=== PATIENT | female | born 1945 | race Caucasian/White ===

== ENCOUNTER 2020-04-29 21:44 | Emergency (ER) | payer MEDICARE, SELFPAY ==
[2020-04-29 21:47] VITALS: BP 175/87; PULSE 105; RESP 20; TEMP 36.9; O2SAT 99
--- NOTE | 2020-04-29 22:11 | ED.GENADULT ---
HPI - General Adult General Chief complaint: Wound/Laceration Stated complaint: bilat hand ibarra Time Seen by Provider: 04/29/20 22:01 Source: RN notes reviewed History of Present Illness HPI narrative: Patient presents emergency department from home for ibarra to the hand. Patient states that approximately 4:30 PM today she was at [facility] in [place] when she was getting coffee for her when they coffee came out the lid was on loosely and hot coffee spilled out the size onto her hands. She states that she is had pain in her hands since that time. She denies any blistering or open wounds. States she talked her daughter this evening recommend she came in for further evaluation. She states she has been placing them under water she states she is taken no other pain medication she denies any other ibarra outside of her hand. Related Data Home Medications Medication Instructions Recorded Confirmed amantadine HCl 100 mg tablet 100 mg PO BID 09/28/19 aspirin 81 mg tablet,delayed 81 mg PO DAILY 09/28/19 release atorvastatin 20 mg tablet 20 mg PO DAILY 09/28/19 cholecalciferol (vitamin D3) 25 1,000 unit PO DAILY 09/28/19 mcg (1,000 unit) capsule ferrous sulfate 325 mg (65 mg 325 mg PO DAILY 09/28/19 iron) tablet gabapentin 400 mg capsule 400 mg PO TID 09/28/19 glatiramer 20 mg/mL subcutaneous 20 mg SUB-Q 3XW ml 09/28/19 syringe insulin glargine 100 unit/mL (3 10 unit SUB-Q DAILY 09/28/19 mL) subcutaneous pen metformin 500 mg tablet 1,000 mg PO BID tablet 09/28/19 mirabegron 25 mg tablet,extended 25 mg PO DAILY 03/22/20 release 24 hr sertraline 50 mg tablet 50 mg PO DAILY 03/22/20 Allergies Allergy/AdvReac Type Severity Reaction Status Date / Time tomato Allergy Severe Mouth sores Verified 03/22/20 14:03 [place] And Derivatives Allergy Intermediate Mouth sores Verified 03/22/20 14:03 strawberry Allergy Mild Unknown Verified 03/22/20 14:03 Penicillins Allergy Unknown Unknown Verified 03/22/20 14:03 Sulfa (Sulfonamide Allergy Unknown Unknown Verified 03/22/20 14:03 Antibiotics) Review of Systems Review of Systems: Narrative: Gen.: Denies fevers or chills Musculoskeletal: See HPI Neuro: Denies numbness, tingling, weakness Skin: See HPI Endo: Reports DM [facility] Past Medical History Medical History (Updated 04/29/20 @ 22:15 by Vinicio Grant DO) Multiple sclerosis Type 2 diabetes mellitus without complications Surgical History Surgical History H/O cataract removal with insertion of prosthetic lens Social History Social History Smoking status: Former smoker Second hand tobacco smoke exposure: No Smoking end date: 11/04/83 Alcohol intake: current Substance use: never Gender identity (if verbalized by the patient): Female Exam Narrative: Exam Narrative: APPEARANCE: No acute distress, nontoxic, resting in bed Eyes: EOMI HEENT: Normocephalic, atraumatic, RESPIRATORY: No respiratory distress MUSCULOSKELETAl: Bilateral radial pulse 2+, full flexion extension of all 5 MCP and IP joints bilaterally NEURO: Awake and alert. Following commands, speech normal, no focal deficits SKIN:: Warm, dry. Mild spots of erythema over the bilateral palmar aspect of the hands and fingers no blistering or open wounds Course Course Emergency Course: Discussed with patient results of workup and diagnosis. Discussed need for follow-up with primary care, proper use of medication, and reasons to return to the emergency department. Patient understands and agrees to current treatment plan Vital Signs Vital signs: Vital Signs Temperature 98.5 F 04/29/20 21:47 Pulse Rate 105 H 04/29/20 21:47 Respiratory Rate 20 04/29/20 21:47 Blood Pressure 175/87 H 04/29/20 21:47 Pulse Oximetry 99 04/29/20 21:47 Temperature 98.5 F 04/29/20 21:47 Pulse Rate 105 H
== END 2020-04-29 22:29 | disposition home or self-care (01) ==
PROVIDERS: Emergency Provider Emergency Medicine; PCP Internal Medicine
DX: T23.152A Burn of first degree of left palm, initial encounter (principal); T23.132A Burn of first degree of multiple left fingers (nail), not including thumb, initial encounter; T23.151A Burn of first degree of right palm, initial encounter; T23.131A Burn of first degree of multiple right fingers (nail), not including thumb, initial encounter; T31.0 Burns involving less than 10% of body surface; G35 Multiple sclerosis; E11.9 Type 2 diabetes mellitus without complications; Z79.82 Long term (current) use of aspirin; Z79.4 Long term (current) use of insulin; Z79.84 Long term (current) use of oral hypoglycemic drugs; Z98.49 Cataract extraction status, unspecified eye; Z96.1 Presence of intraocular lens; Z87.891 Personal history of nicotine dependence
CPT/HCPCS: 99281

== ENCOUNTER 2020-11-21 13:30 | Outpatient (RCR) | payer MEDICARE, SELFPAY ==
[2020-11-21] MEDS: diphenhydrAMINE HCl CAP 25 MG CAPSULE PO (13:35)
[2020-11-21] MEDS: ACETAMINOPHEN 325 MG TABLET 650 MG PO (13:35)
[2020-11-21] MEDS: FAMOTIDINE 20 MG TABLET PO (13:35)
[2020-11-21 13:46] VITALS: BP 137/63; PULSE 105; RESP 18; TEMP 38.1; O2SAT 97
[2020-11-21 14:33] VITALS: BP 165/69; PULSE 99; RESP 16; TEMP 37.6; O2SAT 98
[2020-11-21 15:30] VITALS: BP 145/65; PULSE 100; RESP 18; O2SAT 100
--- NOTE | 2020-11-22 15:12 | PC.NURSE ---
Patient with no further symptoms from covid and patient with no reaction to the Bamlinivimab.
== END 2020-12-01 09:19 ==
LOC: AMCINF 13:30
PROVIDERS: PCP Internal Medicine; Visit Provider Internal Medicine
DX: Z23 Encounter for immunization (principal); U07.1 COVID-19; I10 Essential (primary) hypertension; E11.9 Type 2 diabetes mellitus without complications; G35 Multiple sclerosis; Z87.891 Personal history of nicotine dependence
CPT/HCPCS: A9270; J7050; M0239; Q0239

== ENCOUNTER 2021-08-01 07:32 | Outpatient (CLI) | payer MEDICARE, SELFPAY ==
--- NOTE | ~2021-08-01 | US_ITS ---
EXAMINATION: US abdomen complete EXAM DATE: 08/01/2021 08:22 INDICATION: thrombocytopenia, normochromic anemia. TECHNIQUE: Multiple grayscale and Doppler images of the complete abdomen were obtained (by a technolo gist who performed the scan) and subsequently reviewed. Correlation made to prior kidney ultrasound 04/30/2018, CT abdomen pelvis 01/06/2019 FINDINGS: The abdominal aorta is normal in caliber. Visualized portion IVC is patent. The pancreatic head a nd body are normal in appearance. The pancreatic tail is not visualized. The liver has normal echogenicity and contour. There are no focal liver lesions identified. There is no evidence of intrahepatic biliary duct dilation. Portal venous flow was seen in the hepatopedal , normal direction and has normal Doppler waveform. Common bile duct measures 5 mm, which is normal. The gallbladder wall is normal in thickness, with ex pected amount of distention. No sonographic evidence of pericholecystic fluid. There is a single si zable gallstone identified in the gallbladder which is mobile. Technologist performing exam reports patient did not demonstrate sonographic Murray's sign. Please note that this sign is less reliable i n patients who have received pain medication. Right kidney: There is normal contour and echogenicity. It measures 9.2 x 5.0 x 4.0 centimeters. T here are no focal renal lesions identified. There is no hydronephrosis. Left kidney: There is normal contour and echogenicity. It measures 10.9 x 4.4 x 4.0 centimeters. T here are no focal renal lesions identified. There is no hydronephrosis. Spleen measures 13.9 cm, borderline enlarged. Anechoic cystic region within the spleen measuring 1.3 cm, likely corresponding to one of the several hypodensities on prior CT, benign finding. IMPRESSION: 1. Borderline splenomegaly. 2. Cystic splenic lesion, benign. 3. Cholelithiasis. Reviewed, dictated and finalized at location A.
== END 2021-08-01 07:33 | disposition home or self-care (01) ==
PROVIDERS: PCP Internal Medicine; Visit Provider Internal Medicine
DX: D69.6 Thrombocytopenia, unspecified (principal); D64.9 Anemia, unspecified; D50.1 Sideropenic dysphagia; K80.20 Calculus of gallbladder without cholecystitis without obstruction
CPT/HCPCS: 76700

== ENCOUNTER → 2021-08-17 07:58 | Outpatient (CLI) | payer MEDICARE, SELFPAY ==
[2021-08-17 18:09] LABS: SARS-CoV-2 RNA PCR Negative
== END ==
PROVIDERS: PCP Internal Medicine; Visit Provider Internal Medicine
DX: R09.89 Other specified symptoms and signs involving the circulatory and respiratory systems (principal); Z20.822 Contact with and (suspected) exposure to COVID-19
CPT/HCPCS: C9803; U0003; U0005

== ENCOUNTER 2021-10-15 12:54 | Emergency (ER) | payer MEDICARE, SELFPAY ==
--- NOTE | ~2021-10-15 | CT_ITS ---
EXAMINATION: CT brain wo con, CT cervical spine wo con EXAM DATE: 10/15/2021 14:42 INDICATION: Trauma, dizziness. Posterior head injury. TECHNIQUE: Spiral CT of the head was performed without contrast. Axial, coronal and sagittal images were reviewed. Spiral CT of the cervical spine was performed without contrast. Axial images were rev iewed. Coronal and sagittal reformatted images were also reviewed. The dose-length product (DLP) fo r this examination was 756.67 (accession [id number]), 520.63 (accession [id number]) mGy-cm. The exposure was tailored according to patient size, and iterative reconstruction (ASIR) was used as additional dose reduction technique. Compared to head CT 05/03/2018. FINDINGS: HEAD CT: There is no acute intraparenchymal hemorrhage. No evidence of intraparenchymal brain mass l esion. No evidence of acute infarction. There is mild periventricular and subcortical hypodensity, n onspecific but probably related to small vessel ischemic disease. There is moderate prominence of t he sulci and ventricles related to cerebral atrophy. There is no mass effect or midline shift. The re is no obstructive hydrocephalus suspected. There are no extra-axial collections. There are no ac [place] calvar[place] fractures. The orbits are unremarkable. Soft tissue is unremarkable. The visualized sinuses and mastoid air cells are well aerated. CERVICAL CT: There is no evidence of acute cervical fracture. The odontoid process is intact. Pre-d ens space is normal. Prevertebral soft tissue is normal. There are no soft tissue abnormalities arthur ntified. There is no disc space widening or traumatic vertebral body subluxation suspected. Moderat e disc disease at C6-7. There is severe left mid cervical facet arthropathy. A detailed level by ann marie booker evaluation of spondylosis can be added as addendum if requested. IMPRESSION: 1. No acute intracranial findings or cervical fracture. 2. Age-related intracranial findings. 3. Cervical spondylosis. Reviewed, dictated and finalized at location A. H DRIVER IMPRESSION: 1. No acute intracranial findings or cervical fracture. 2. Age-related intracranial findings. 3. Cervical spondylosis.
[2021-10-15 13:00] VITALS: BP 138/63; PULSE 81; RESP 14; TEMP 36.8; O2SAT 99
--- NOTE | 2021-10-15 13:08 | ECG_ITS ---
Measurements Intervals [place] Rate: 79 P: -33 [place]: 126 QRS: -20 QRSD: 84 T: -29 QT: 380 QTc: 438 Interpretive Statements SINUS RHYTHM INFERIOR INFARCT, AGE INDETERMINATE BORDERLINE ST ABNORMALITY- ANTERIOR LEADS BASELINE ARTIFACT- II, V3 ABNORMAL ECG Electronically Signed On 10-15-2021 16:36:32 TICKET MACHINE OPERATOR by Dariel Wren D.O.
[2021-10-15 13:16] LABS: Glucose Point of Care 71 mg/dl (65-105)
[2021-10-15 14:12] LABS: Glucose Point of Care 232 mg/dl (65-105)
[2021-10-15 14:58] LABS: Basophils Percent Auto 0.4 % (0.2-1.2); Eosinophils Percent Auto 0.8 % (0-4.4); Hematocrit 36.1 % (37.0-47.0); Hemoglobin 12.6 g/dL (12.0-15.0); Immature Granulocyte Absolute 0.01 K/mm3 (0.00-0.031); Immature Granulocyte Percent A 0.2 % (0-0.5); Lymphocytes Absolute Auto 0.57 K/mm3 (0.9-3.2); Lymphocytes Percent Auto 11.6 % (18.3-44.2); Mean Corpuscular HGB Conc 34.9 g/dl (32-36); Mean Corpuscular Hemoglobin 32.1 pg (26-34); Mean Corpuscular Volume 92.1 fl (80-100); Mean Platelet Volume 9.8 fl (7.4-10.4); Monocytes Absolute Auto 0.5 K/mm3 (0.1-0.6); Monocytes Percent Auto 9.9 % (2.6-8.5); Neutrophils Absolute Auto 3.8 K/mm3 (1.3-6.7); Neutrophils Percent Auto 77.1 % (45.5-73.1); Platelet Count Result 78 k/mm3 (150-375); Red Blood Count 3.92 M/mm3 (4.2-5.4); Red Cell Distribution Width 14.2 % (11.5-14.5); White Blood Count 4.9 K/mm3 (4.5-10.0)
[2021-10-15 15:30] LABS: Alanine Aminotransferase 23 U/L (4-35); Albumin Level 3.8 g/dL (3.5-5.1); Alkaline Phosphatase 74 U/L (38-126); Anion Gap 12 mmol/L (8-16); Aspartate Amino Transferase 32 U/L (14-36); Bilirubin,Total 1.3 mg/dL (0.2-1.3); Blood Urea Nitrogen 14 mg/dL (7-17); Calcium 8.8 mg/dL (8.4-10.2); Carbon Dioxide 21 mmol/L (22-30); Chloride 97 mmol/L (98-107); Estimated CRCL calculation 58 ml/min; Estimated Glomerular Filt Rate > 60; Glucose 257 mg/dL (65-110); Potassium 3.3 mmol/L (3.4-5.0); Sodium 130 mmol/L (137-145)
--- NOTE | 2021-10-15 15:37 | ED.FALL ---
HPI - Fall General Chief Complaint: Fall Stated Complaint: fall Time Seen by Provider: 10/15/21 13:17 History of Present Illness HPI Narrative: Patient is a 76-year-old female who presents ER after a fall. Patient was getting up from the toilet when she fell into the side of her shower and hit the ground. She did strike her head. She has a 2 cm laceration on the right side. No loss of consciousness. She is not on any blood thinners. Patient had some weakness likely from the fact that her blood sugar was 50 and that she has MS. She reports she has been feeling weak for the last couple days and has not been eating well. She did not take her medications this morning. Related Data Home Medications Medication Instructions Recorded Confirmed atorvastatin 20 mg tablet 20 mg PO DAILY 09/28/19 09/06/21 cholecalciferol (vitamin D3) 25 1,000 unit PO DAILY 09/28/19 09/06/21 mcg (1,000 unit) capsule ferrous sulfate 325 mg (65 mg 325 mg PO DAILY 09/28/19 09/06/21 iron) tablet metformin 500 mg tablet 1,000 mg PO BID tablet 09/28/19 09/06/21 mirabegron 25 mg tablet,extended 25 mg PO DAILY 03/22/20 09/06/21 release 24 hr elderberry fruit 200 mg capsule mg PO 09/06/21 09/06/21 exenatide microspheres 2 mg/0.85 2 mg SUBCUT WEEKLY 09/06/21 09/06/21 mL subcutaneous auto-injector insulin glargine 100 unit/mL (3 20 unit SUB-Q DAILY ml 09/06/21 09/06/21 mL) subcutaneous pen melatonin 3 mg capsule 3 mg PO QHS 09/06/21 09/06/21 Allergies Allergy/AdvReac Type Severity Reaction Status Date / Time tomato Allergy Severe Mouth sores Verified 10/15/21 13:07 [place] And Derivatives Allergy Intermediate Mouth sores Verified 10/15/21 13:07 strawberry Allergy Mild Unknown Verified 10/15/21 13:07 Penicillins Allergy Unknown Unknown Verified 10/15/21 13:07 Sulfa (Sulfonamide Allergy Unknown Unknown Verified 10/15/21 13:07 Antibiotics) Review of Systems Review of Systems: All systems reviewed & are unremarkable except as noted in HPI and below Constitutional: Constitutional: Denies chills, Denies fever(s) and Denies weakness ENT: Denies nasal congestion and Denies sore throat Cardiovascular: Cardiovascular: Denies chest pain, Denies rapid heart rate and Denies radiating jaw, neck or arm pain Respiratory: Respiratory: Denies cough, Denies dyspnea and Denies wheezing Gastrointestinal: Gastrointestinal: Denies abdominal pain, Denies nausea and Denies vomiting Neurologic: Denies syncope, Denies headache(s), Denies focal weakness and Denies numbness PMFSH Past Medical History Medical History Multiple sclerosis Type 2 diabetes mellitus without complications Surgical History Surgical History H/O cataract removal with insertion of prosthetic lens Family History Family History Sibling Hypertension Family history of malignant neoplasm of cervix Father Patient's father is Social History Social History Smoking packs per day: 1 Smoking cigarettes per day: 20.0 Years smoked: 40 Smoking pack-years: 40.00 Smoking status: Former smoker Tobacco type: cigarettes Second hand tobacco smoke exposure: Yes () Smoking end date: 11/04/92 Alcohol intake: current Substance use: never Gender identity (if verbalized by the patient): Female Spiritual care concerns: No Exam Narrative: GENERAL: Well-appearing, well-nourished, and in no acute distress. HEAD: Normocephalic, low approximately 2 cm laceration right occipital parietal region. Bleeding controlled.. EYES: PERRL and EOMI. ENT: Mucous membranes moist. CHEST: Clear to auscultation. No respiratory distress. HEART: Regular rate and rhythm. Normal peripheral pulses. ABDOMEN: Soft, nontender, nondistended. EXTREM
[2021-10-15 16:01] VITALS: BP 153/61; PULSE 78; RESP 16; O2SAT 100
== END 2021-10-15 16:03 | disposition home or self-care (01) ==
PROVIDERS: Emergency Provider Emergency Medicine; PCP Internal Medicine
DX: S01.01XA Laceration without foreign body of scalp, initial encounter (principal); W18.11XA Fall from or off toilet without subsequent striking against object, initial encounter; E11.649 Type 2 diabetes mellitus with hypoglycemia without coma; G35 Multiple sclerosis; Z79.4 Long term (current) use of insulin; Z79.84 Long term (current) use of oral hypoglycemic drugs; Z98.49 Cataract extraction status, unspecified eye; Z96.1 Presence of intraocular lens; Z87.891 Personal history of nicotine dependence; M47.812 Spondylosis without myelopathy or radiculopathy, cervical region
CPT/HCPCS: 12001; 36415; 70450; 72125; 80053; 82948; 85025; 93005; 99284; L0140

== ENCOUNTER 2022-01-24 11:42 | Inpatient (IN) | payer MEDICARE, SELFPAY ==
[2022-01-24] VITALS (60 sets, daily range): BP systolic 76–144; BP diastolic 41–87; PULSE 82–103; RESP 11–38; TEMP 36.1–37.3; O2SAT 96–100; BMI 32.3
--- NOTE | ~2022-01-24 | XR_ITS ---
EXAMINATION: XR chest 1V portable EXAM DATE: 01/24/2022 17:13 INDICATION: Hypotension, 3 Syncopal Episodes Today, Hx Ms, Hx Diabetes. TECHNIQUE: Portable AP frontal chest x-ray was obtained. Comparison is made to prior examination from 07/01/2018. FINDINGS: The lungs are clear. There are no pleural effusions. Cardiac silhouette is prominent but magnified on this AP technique. There is no pneumothorax suspected. The bones and soft tissues are unremarkable. IMPRESSION: No acute cardiopulmonary findings. Reviewed, dictated and finalized at location G.
--- NOTE | ~2022-01-24 | US_ITS ---
EXAMINATION: US abdomen limited DATE: 01/26/2022 11:25 INDICATION: Cirrhosis TECHNIQUE: Multiple grayscale and Doppler ultrasound images of the abdomen were obtained. COMPARISON: 06/23/2021 FINDINGS: The head, body, and tail of the pancreas are normal. The liver demonstrates coarsened echot exture and increased echogenicity. There is nodularity of the liver surface. The portal vein is enlar ged. Normal hepatopetal flow in the main portal vein. A stone is present in the nondistended gallblad edvin. There is mild wall thickening of the gallbladder. The normal common bile duct measures 4 mm. The re was no sonographic Murray sign. IMPRESSION: 1. Cirrhosis with hypertension. 2. Cholelithiasis without evidence of cholecystitis. Wall thickening of the gallbladder likely relate s to chronic liver disease Reviewed, dictated and finalized at location B. IMPRESSION: 1. Cirrhosis with hypertension. 2. Cholelithiasis without evidence of cholecystitis. Wall thickening of the gal lbladder likely relates to chronic liver disease
--- NOTE | ~2022-01-24 | CT_ITS ---
EXAMINATION: CTA chest PE protocol EXAM DATE: 01/24/2022 21:06 INDICATION: Hypertension, syncope. TECHNIQUE: Spiral CTA of the chest (pulmonary arteries) was performed with 100 cc Omnipaque 350 intr avenous contrast injection. Images were acquired during the pulmonary arterial phase. Coronal maxi mum intensity projection 3D-reconstructions were created by the technologist on dedicated workstation . Axial, coronal and sagittal reformatted images were reviewed. The dose-length product (DLP) for t his examination was 505.37 mGy-cm. The exposure was tailored according to patient size (auto mA exp osure control), and iterative reconstruction (ASIR) was used as additional dose reduction technique. There is no prior study for comparison. FINDINGS: Pulmonary arteries are well opacified and without intraluminal filling defects. No thora cic aortic dissection. The lungs are clear. There are no pleural or pericardial effusions. Trach eobronchial tree is patent. There is no mediastinal, hilar or axillary lymphadenopathy. There is no pneumothorax. Heart normal in size. There is mild to moderate coronary arterial calcification, arterial sclerosis. There is a 2 cm gallstone. There is only mild gallbladder distention, but indistinct wall, mild adjac ent fat stranding which could be reactive from chronic liver disease given the liver surface nodulari ty consistent with cirrhosis. Dilated portal vein up to 2.3 cm consistent with portal hypertension wi th mild periportal edema. The imaged portion of the spleen measures 13.8 cm, upper limits of normal. 4 splenic nonspecific hypodensity, likely benign. There is thoracic spondylosis without osteoblastic or osteolytic lesions identified. IMPRESSION: 1. No pulmonary emboli or acute cardiopulmonary findings. 2. Cirrhosis, portal hypertension. Periportal and pericholecystic fat stranding could be reactive fr om chronic liver disease. Cholelithiasis. 3. Nonspecific splenic lesions. Majority of splenic lesions are benign. Reviewed, dictated and finalized at location G. IMPRESSION: 1. No pulmonary emboli or acute cardiopulmonary findings. 2. Cirrhosis, portal hypertension. Periportal and pericholecystic fat strandin g could be reactive from chronic liver disease. Cholelithiasis. 3. Nonspecific splenic lesions. Majority of splenic lesions are benign.
--- NOTE | 2022-01-24 11:48 | ECG_ITS ---
Measurements Intervals [place] Rate: 95 P: -24 [place]: 134 QRS: -2 QRSD: 78 T: 3 QT: 354 QTc: 446 Interpretive Statements SINUS RHYTHM PROBABLE INFERIOR MYOCARDIAL INFARCTION , PROBABLY OLD [35 ms Q WAVE IN II/aVF] NONSPECIFIC ST ABNORMALITY POOR R-WAVE PROGRESSION ABNORMAL ECG Electronically Signed On 01-24-2022 14:21:01 CDT by Kevin Worthy M.D.
[2022-01-24 12:36] LABS: Basophils Absolute Auto 0.1 K/mm3 (0.0-0.1); Basophils Percent Auto 0.7 % (0.2-1.2); Eosinophils Absolute Auto 0.1 K/mm3 (0-0.3); Eosinophils Percent Auto 1.2 % (0-4.4); Hematocrit 44.5 % (37.0-47.0); Hemoglobin 14.7 g/dL (12.0-15.0); Immature Granulocyte Absolute 0.05 K/mm3 (0.00-0.031); Immature Granulocyte Percent A 0.5 % (0-0.5); Lymphocytes Absolute Auto 1.61 K/mm3 (0.9-3.2); Lymphocytes Percent Auto 17.5 % (18.3-44.2); Mean Corpuscular Volume 96.7 fl (80-100); Mean Platelet Volume 9.6 fl (7.4-10.4); Monocytes Absolute Auto 0.8 K/mm3 (0.1-0.6); Monocytes Percent Auto 8.9 % (2.6-8.5); Neutrophils Absolute Auto 6.5 K/mm3 (1.3-6.7); Neutrophils Percent Auto 71.2 % (45.5-73.1); Platelet Count Result 186 k/mm3 (150-375); Red Cell Distribution Width 13.3 % (11.5-14.5); White Blood Count 9.2 K/mm3 (4.5-10.0)
[2022-01-24 12:42] LABS: Alanine Aminotransferase 20 U/L (4-35); Albumin Level 3.9 g/dL (3.5-5.1); Alkaline Phosphatase 62 U/L (38-126); Anion Gap 13 mmol/L (8-16); Aspartate Amino Transferase 31 U/L (14-36); Bilirubin,Total 0.7 mg/dL (0.2-1.3); Blood Urea Nitrogen 12 mg/dL (7-17); Calcium 9.2 mg/dL (8.4-10.2); Carbon Dioxide 21 mmol/L (22-30); Chloride 106 mmol/L (98-107); Estimated CRCL calculation 49 ml/min; Estimated Glomerular Filt Rate > 60; Glucose 98 mg/dL (65-110); Potassium 2.9 mmol/L (3.4-5.0); Sodium 140 mmol/L (137-145)
--- NOTE | 2022-01-24 12:42 | PC.NURSE ---
PT COVERED IN TOOL, BED PATH GIVEN, NEW LINEN AND GOWN CHANGED
--- NOTE | 2022-01-24 13:28 | ED.GENADULT ---
HPI - General Adult General Chief complaint: Syncope Stated complaint: weakness, syncopal episode Time Seen by Provider: 01/24/22 13:13 Source: patient Mode of arrival: EMS Limitations: no limitations History of Present Illness HPI narrative: Patient woke up this morning felt like she needed to go to the bathroom, then had a large watery bowel movement, then tried to stand up and felt woozy and fell down to the floor, did not black out. Patient denied any head injury or other injuries. Patient reports having sporadic episodes of diarrhea and usually take Imodium for it. Currently patient is asymptomatic feeling okay as long as laying down in bed. She denies any fever, chills, nausea, vomiting, abdominal pain, chest pain, shortness of breath, headache. Patient could not pick her up of the floor at this why call 911 Related Data Home Medications Medication Instructions Recorded Confirmed atorvastatin 20 mg tablet 20 mg PO DAILY 09/28/19 10/23/21 cholecalciferol (vitamin D3) 25 1,000 unit PO DAILY 09/28/19 10/23/21 mcg (1,000 unit) capsule ferrous sulfate 325 mg (65 mg 325 mg PO DAILY 09/28/19 10/23/21 iron) tablet metformin 500 mg tablet 1,000 mg PO BID tablet 09/28/19 10/23/21 mirabegron 25 mg tablet,extended 25 mg PO DAILY 03/22/20 10/23/21 release 24 hr elderberry fruit 200 mg capsule mg PO 09/06/21 10/23/21 exenatide microspheres 2 mg/0.85 2 mg SUBCUT WEEKLY 09/06/21 10/23/21 mL subcutaneous auto-injector insulin glargine 100 unit/mL (3 20 unit SUB-Q DAILY ml 09/06/21 10/23/21 mL) subcutaneous pen melatonin 3 mg capsule 3 mg PO QHS 09/06/21 10/23/21 Allergies Allergy/AdvReac Type Severity Reaction Status Date / Time tomato Allergy Severe Mouth sores Verified 10/20/21 14:03 [place] And Derivatives Allergy Intermediate Mouth sores Verified 10/20/21 14:03 strawberry Allergy Mild Unknown Verified 10/20/21 14:03 Penicillins Allergy Unknown Unknown Verified 10/20/21 14:03 Sulfa (Sulfonamide Allergy Unknown Unknown Verified 10/20/21 14:03 Antibiotics) Review of Systems Review of Systems: CONSTITUTIONAL: Denies fever, chills, or sweats. EYES: Denies visual changes, redness, or discharge. ENT: Denies rhinorrhea, congestion, sore throat, or otalgia. CARDIOVASCULAR: Denies chest pain, palpitations, or edema. RESPIRATORY: Denies cough or dyspnea. GASTROINTESTINAL: Denies abdominal pain, nausea, vomiting, or diarrhea. GENITOURINARY: Denies dysuria or hematuria. SKIN: Denies rash or itching. MUSCULOSKELETAL: Denies back pain, joint pain, or myalgia. NEUROLOGIC: Denies headache, numbness, or weakness. PSYCHIATRIC: Denies anxiety or depression. [facility] Past Medical History Medical History Multiple sclerosis Type 2 diabetes mellitus without complications Surgical History Surgical History H/O cataract removal with insertion of prosthetic lens Family History Family History Sibling Hypertension Family history of malignant neoplasm of cervix Father Patient's father is Social History Social History Smoking packs per day: 1 Smoking cigarettes per day: 20.0 Years smoked: 40 Smoking pack-years: 40.00 Smoking status: Former smoker Tobacco type: cigarettes Second hand tobacco smoke exposure: Yes () Smoking end date: 11/04/92 Alcohol intake: current Substance use: never Gender identity (if verbalized by the patient): Female Spiritual care concerns: No Exam Narrative: General appearance: Well-developed, well-nourished Skin: Normal color Head: Normocephalic, nontraumatic Eyes: Clear conjunctiva ENT: Oropharynx normal, ears normal, nose normal Neck: Supple, nontender Chest and respiratory: Airway patent, no respiratory distress, no accessory mus
[2022-01-24] MEDS: SODIUM CHLORIDE 0.9% IV 1,000 ML 999 ML IV CONT ×3 (13:40→17:29)
--- NOTE | 2022-01-24 16:25 | PC.NURSE ---
pt noted to be hypotensive after ambulating to bathroom 88/54, pt complained of dizziness when sitting up . 2nd liter of NS started, pt laid flat
--- NOTE | 2022-01-24 16:55 | ECG_ITS ---
Measurements Intervals [place] Rate: 95 P: -24 [place]: 134 QRS: -2 QRSD: 78 T: 3 QT: 354 QTc: 446 Interpretive Statements SINUS RHYTHM PROBABLE INFERIOR MYOCARDIAL INFARCTION , PROBABLY OLD [35 ms Q WAVE IN II/aVF] NONSPECIFIC ST ABNORMALITY ABNORMAL ECG COMPARED TO ECG 10/15/2021 13:12:58 NO SIGNIFICANT CHANGES Electronically Signed On 01-25-2022 15:44:20 CDT by Kevin Worthy M.D.
[2022-01-24 17:58] LABS: INR 1.4; Prothrombin Time 16.8 Seconds (11.1-14.7)
[2022-01-24 17:59] LABS: CRP 0.7 mg/dL (<1.0); Partial Thromboplastin Time 28.6 SECONDS (22.3-36.8)
[2022-01-24 18:00] LABS: Lactic Acid Reflex 4.8 mmol/L (0.7-2.1)
[2022-01-24 18:10] LABS: Troponin I 0.143 ng/mL (0.000-0.034)
[2022-01-24 18:26] LABS: SARS-CoV-2 RNA PCR Negative
[2022-01-24 20:42] LABS: Reflex Lactic Acid Yes or No Add Lactic
--- NOTE | 2022-01-24 20:49 | PM.IMHP ---
H&P: HPI History of Present Illness Date/Time: 01/24/22 20:49 Chief Complaint: 76 years old female with past medical history multiple sclerosis hypertension chronic diarrhea presented to the hospital with near-syncope episode patient had urge to go to the bathroom to have a bowel movement big large bowel movement liquid then she fell to the ground patient did not hit her head not sustain any injury patient stated that she have history of diarrhea in the past and she takes Imodium at the ER patient was found to have dehydration hypokalemia elevated lactic acid admitted to the hospital for further evaluation and treat Review of Systems Review of Systems: All systems reviewed & are unremarkable except as noted in HPI and below PMFSH Past Medical History Medical History Multiple sclerosis Type 2 diabetes mellitus without complications Surgical History Surgical History H/O cataract removal with insertion of prosthetic lens Family History Family History Sibling Hypertension Family history of malignant neoplasm of cervix Father Patient's father is Social History Social History Smoking packs per day: 1 Smoking cigarettes per day: 20.0 Years smoked: 40 Smoking pack-years: 40.00 Smoking status: Former smoker Tobacco type: cigarettes Second hand tobacco smoke exposure: Yes () Smoking end date: 11/04/92 Alcohol intake: current Substance use: never Gender identity (if verbalized by the patient): Female Spiritual care concerns: No Meds Home Medications and Allergies Home Medications Medication Instructions Recorded Confirmed Type atorvastatin 20 mg tablet 20 mg PO DAILY 09/28/19 10/23/21 History cholecalciferol (vitamin D3) 25 1,000 unit PO DAILY 09/28/19 10/23/21 History mcg (1,000 unit) capsule ferrous sulfate 325 mg (65 mg 325 mg PO DAILY 09/28/19 10/23/21 History iron) tablet metformin 500 mg tablet 1,000 mg PO BID tablet 09/28/19 10/23/21 History mirabegron 25 mg tablet,extended 25 mg PO DAILY 03/22/20 10/23/21 History release 24 hr amantadine HCl 100 mg tablet 100 mg PO BID #60 tablet 08/21/21 10/23/21 Rx gabapentin 100 mg capsule 100 mg PO DAILY #30 cap 08/30/21 10/23/21 Rx gabapentin 600 mg tablet 600 mg PO DAILY #30 tablet 08/30/21 10/23/21 Rx elderberry fruit 200 mg capsule mg PO 09/06/21 10/23/21 History exenatide microspheres 2 mg/0.85 2 mg SUBCUT WEEKLY 09/06/21 10/23/21 History mL subcutaneous auto-injector insulin glargine 100 unit/mL (3 20 unit SUB-Q DAILY ml 09/06/21 10/23/21 History mL) subcutaneous pen lisinopril 20 mg tablet 20 mg PO DAILY #90 tablet 09/06/21 10/23/21 Rx melatonin 3 mg capsule 3 mg PO QHS 09/06/21 10/23/21 History fluticasone propionate 50 2 spray INTRANASAL DAILY PRN #46 ml 11/07/21 Rx mcg/actuation nasal spray,suspension glatiramer 20 mg/mL subcutaneous 20 mg SUB-Q 3XW #30 ml 11/08/21 Rx syringe aspirin 81 mg tablet,delayed 81 mg PO DAILY #100 tablet 11/15/21 Rx release citalopram 40 mg tablet 40 mg PO DAILY #30 tablet 11/15/21 Rx Allergies Allergy/AdvReac Type Severity Reaction Status Date / Time tomato Allergy Severe Mouth sores Verified 10/20/21 14:03 [place] And Derivatives Allergy Intermediate Mouth sores Verified 10/20/21 14:03 strawberry Allergy Mild Unknown Verified 10/20/21 14:03 Penicillins Allergy Unknown Unknown Verified 10/20/21 14:03 Sulfa (Sulfonamide Allergy Unknown Unknown Verified 10/20/21 14:03 Antibiotics) Vital Signs Vital Signs - 24 hr 01/24/22 11:45 01/24/22 11:48 01/24/22 12:03 Temperature 97 F L Pulse Rate Respiratory Rate 15 26 H Blood Pressure 88/44 L Pulse Oximetry 100 01/24/22 12:15 01/24/22 12:30
--- NOTE | 2022-01-24 21:24 | ADMGEN ---
This patient, Duong Haddad, was admitted to IMU Room 200-01 at 2022. Patient/family oriented to hospital policies and general routines including ID bracelet, bed and alarms, visiting hours, pain management, procedures, bathroom and other care routines, personal items, smoking policy, room service/diet, and visiting hours. Information on how to activate the Rapid Response Team has been discussed. Patient/Family are encouraged to report perceived risks to care and to ask questions if they do not understand what they are told or what they should do.
[2022-01-24 22:30] LABS: Lactic Acid 2.4 mmol/L (0.7-2.1)
[2022-01-24] MEDS: POTASSIUM CHLORIDE INJ 40 MEQ in SODIUM CHLORIDE 0.9% IV 500 ML 130 MEQ IVPB (22:47)
[2022-01-24] MEDS: SODIUM CHLORIDE 0.9% IV 1,000 ML 100 ML IV CONT (22:48)
[2022-01-24 23:37] LABS: Add Urine Microscopic? YES; Appearance Urine Cloudy (Clear); Bacteria Urine Trace /hpf; Bilirubin Urine Negative (Negative); Blood Urine Negative (Negative); Color Urine Yellow (Yellow); Glucose Urine UA Negative (Negative); Ketones Urine Negative (Negative); Leukocyte Esterase Ur Trace LEU/UL (Negative); Mucus Urine Rare /lpf; Nitrate Urine Negative (Negative); Protein Urine 1+ mg/dL (Negative); RBC Urine 21-50 /hpf (0-2); Squamous Epithelial Cell Urine Many /hpf (Few); Urobilinogen Urine Negative mg/dL (<2.0)
[2022-01-24] MEDS: MELATONIN 3 MG TABLET PO (23:44)
[2022-01-24 23:47] LABS: Specific Grav Ur 1.055 (1.001-1.035)
[2022-01-25] VITALS (19 sets, daily range): BP systolic 122–193; BP diastolic 54–88; PULSE 55–106; RESP 16–22; TEMP 36.8–37.6; O2SAT 95–100
[2022-01-25 05:54] LABS: Alanine Aminotransferase 16 U/L (4-35); Albumin Level 2.9 g/dL (3.5-5.1); Alkaline Phosphatase 46 U/L (38-126); Anion Gap 6 mmol/L (8-16); Aspartate Amino Transferase 30 U/L (14-36); Blood Urea Nitrogen 15 mg/dL (7-17); Calcium 7.9 mg/dL (8.4-10.2); Carbon Dioxide 21 mmol/L (22-30); Chloride 111 mmol/L (98-107); Estimated CRCL calculation 49 ml/min; Estimated Glomerular Filt Rate > 60; Glucose 76 mg/dL (65-110); Potassium 3.5 mmol/L (3.4-5.0); Sodium 138 mmol/L (137-145)
[2022-01-25 06:26] LABS: Free T4 Free Thyroxine Reflex 1.39 ng/dL (0.78-2.19)
[2022-01-25 07:43] LABS: Basophils Percent Auto 0.7 % (0.2-1.2); Eosinophils Absolute Auto 0.1 K/mm3 (0-0.3); Eosinophils Percent Auto 1.1 % (0-4.4); Immature Granulocyte Absolute 0.01 K/mm3 (0.00-0.031); Immature Granulocyte Percent A 0.2 % (0-0.5); Lymphocytes Absolute Auto 1.01 K/mm3 (0.9-3.2); Mean Corpuscular HGB Conc 34.4 g/dl (32-36); Mean Corpuscular Hemoglobin 32.4 pg (26-34); Mean Corpuscular Volume 94.1 fl (80-100); Mean Platelet Volume 9.5 fl (7.4-10.4); Monocytes Absolute Auto 0.5 K/mm3 (0.1-0.6); Monocytes Percent Auto 11.1 % (2.6-8.5); Neutrophils Percent Auto 64.9 % (45.5-73.1); Platelet Count Result 85 k/mm3 (150-375); Red Cell Distribution Width 13.4 % (11.5-14.5); White Blood Count 4.6 K/mm3 (4.5-10.0)
[2022-01-25 07:51] LABS: Potassium 3.4 mmol/L (3.4-5.0)
[2022-01-25 07:55] LABS: Lactic Acid Reflex 1.1 mmol/L (0.7-2.1)
[2022-01-25 08:03] LABS: Total Triiodothyronine (T3) 1.59 NG/ML (0.97-1.69)
[2022-01-25 08:46] LABS: Troponin I 0.051 ng/mL (0.000-0.034)
[2022-01-25] MEDS: GABAPENTIN 300 MG CAPSULE 600 MG PO (11:29)
[2022-01-25] MEDS: CITALOPRAM HYDROBROMIDE 20 MG TABLET 40 MG PO (11:29)
[2022-01-25] MEDS: CHOLECALCIFEROL 1,000 UNITS TABLET 1000 UNITS PO (11:30)
[2022-01-25] MEDS: FERROUS SULFATE 324 MG TABLET PO (11:30)
[2022-01-25] MEDS: AMANTADINE HCL 100 MG CAPSULE PO ×2 (11:30→17:37)
[2022-01-25] MEDS: INSULIN GLARGINE (*BKC) 100 UNITS/ML 16 UNITS SUB-Q (11:31)
[2022-01-25] MEDS: ATORVASTATIN 20 MG TABLET PO (11:31)
[2022-01-25] MEDS: lisinopriL 20 MG TABLET PO (11:32)
[2022-01-25] MEDS: ENOXAPARIN 40 MG/0.4 ML SYRINGE SUB-Q (11:32)
[2022-01-25] MEDS: GABAPENTIN 100 MG CAPSULE PO (11:34)
[2022-01-25 12:43] LABS: Glucose Point of Care 125 mg/dl (65-105)
--- NOTE | 2022-01-25 15:13 | PCCCNOTE ---
On 01/25/22, the student, [Mary Khan], provided care and completed [facility] documentation on this patient. I have reviewed the student's documentation and agree with the findings.
[2022-01-25 16:04] LABS: Glucose Point of Care 103 mg/dl (65-105)
--- NOTE | 2022-01-25 16:58 | PM.IMPN ---
Progress Note: A&P Assessment and Plan (1) Bacteremia: Code(s): R78.81 - Bacteremia Status: Acute Assessment and Plan: Blood cultures were drawn due to elevated lactic acid and hypotension. One of 2 bottles has returned Gram-positive cocci in clusters. UA noted but probably more contaminated specimen. Chest x-ray was clear. Could be contaminant. Will add vancomycin. Follow up on final results (2) Orthostatic hypotension: Code(s): I95.1 - Orthostatic hypotension Status: Acute Assessment and Plan: On EMS arrival, blood pressure was 72/54 and 64/42. Patient on lisinopril at home. TSH 6.18 but not felt to be etiology. CTA negative for PE or other acute findings. Possibly related to sepsis with septic shock given positive blood cultures. She may be overtreated given her recent weight loss. She could be dehydrated. Could also be orthostatic hypotension related to autonomic insufficiency. With IV fluids. Her blood pressure has now become hypertensive. Lisinopril has already been added back. Will continue to monitor for now. Continue to monitor. Start PT/OT (3) Elevated lactic acid level: Code(s): R79.89 - Other specified abnormal findings of blood chemistry Status: Acute Assessment and Plan: Most likely related to hypoperfusion secondary to orthostatic hypotension. Infection appears unlikely although now she has positive blood cultures. Lactic acid level has normalized. Follow up on blood culture results. Urine culture pending. (4) Elevated troponin: Code(s): R77.8 - Other specified abnormalities of plasma proteins Status: Acute Assessment and Plan: Troponin elevated 0.14. EKG shows normal sinus rhythm with age-indeterminate inferior infarct and nonspecific ST changes and poor R-wave progression but overall x-ray similar to EKG from October. Repeat EKG showing no significant change. Echo shows EF of 65-70% and grade 1 diastolic dysfunction. No wall motion abnormalities noted. Feel elevated troponin related to hypotensive event given how lower blood pressure was. Continue to monitor on telemetry. (5) Diarrhea: Qualifiers: Diarrhea type: unspecified type Qualified Code(s): R19.7 - Diarrhea, unspecified Code(s): R19.7 - Diarrhea, unspecified Status: Acute Assessment and Plan: Patient states she has chronic diarrhea that comes and goes. No recent antibiotics to suggest C diff. Follow-up with PCP as outpatient. (6) Chronic ITP (idiopathic thrombocytopenia): Code(s): D69.3 - Immune thrombocytopenic purpura Status: Acute Assessment and Plan: Platelet count has been low in the past but was normal on admission. Platelet count today is 85 K. will continue to monitor closely. Will stop Lovenox. (7) Type 2 diabetes mellitus without complications: Code(s): E11.9 - Type 2 diabetes mellitus without complications Status: Acute Assessment and Plan: Patient on Lantus and metformin at home. Lantus started at lower dose. Glucose well controlled. Check A1c. Continue AccuCheks covering with sliding scale. Hypoglycemia protocol available as needed. Continue current medications. (8) Essential (primary) hypertension: Code(s): I10 - Essential (primary) hypertension Status: Acute Assessment and Plan: As above. (9) Multiple sclerosis: Code(s): G35 - Multiple sclerosis Status: Acute Assessment and Plan: Stable. Follow-up with PCP. Start PT/OT (10) Hypokalemia: Code(s): E87.6 - Hypokalemia Status: Acute Assessment and Plan: Potassium better. (11) DVT prophylaxis: Code(s): Z29.9 - Encounter for prophylactic measures, unspecified Status: Acute Assessment and Plan: Will hold Lovenox and start SCDs. Subjective Date/time seen: 01/25/22 16:58 Interval history: 76yo female w
[2022-01-25 20:21] LABS: Glucose Point of Care 125 mg/dl (65-105)
[2022-01-25] MEDS: MELATONIN 3 MG TABLET PO (20:33)
--- NOTE | 2022-01-25 20:43 | ECHO_ITS ---
Patient Info Name: Duong Haddad Age: 76 years : 1945 Gender: Female Ht: 61 in Wt: 171 lbs BSA: 1.86 m2 HR: 92 bpm BP: 151 / 54 mmHg Heart Rhythm: Sinus Rhythm Technical Quality: Fair Exam Date: 01/25/2022 6:40 AM Exam Location: [facility] Card Pulmonary Patient Status: Inpatient Admit Date: 01/24/2022 Staff Ordering Physician: Dolly Cheung M.A., MD Donkey Ride Operator: Venecia Tate RDCS Attending Provider: Anca Vallejo MD Referring Physician: Elio HERNANDEZ; Exam Type: CA echo doppler color flow Study Info Indications - SYNCOPE Complete two-dimensional, color flow and Doppler transthoracic echocardiogram is performed. Summary 1. Complete two-dimensional, color flow and Doppler transthoracic echocardiogram is performed. 2. Left ventricular chamber dimension is normal. 3. Left ventricular systolic function is normal, estimated at 65-70%. 4. The left ventricular diastolic function is grade I diastolic dysfunction. 5. E/e' 14 is mildly elevated. 6. Left atrial chamber dimension is mildly enlarged. 7. There is mild aortic valve sclerosis. 8. The mitral valve has moderately calcified annulus. 9. There is trace mitral valve regurgitation. 10. There is trace tricuspid valve regurgitation. 11. No pulmonary hypertension, estimated pulmonary arterial systolic pressure is 37 mmHg. Left Ventricle E/e' 14 is mildly elevated. Left ventricular chamber dimension is normal. Left ventricular systolic function is normal, estimated at 65-70%. The left ventricular diastolic function is grade I diastolic dysfunction. Right Ventricle Right ventricular systolic function is normal and with normal TAPSE 2.8 cm. Right ventricular chamber dimension is normal. Left Atria Left atrial chamber dimension is mildly enlarged. Right Atria Right atrial chamber dimension is normal. Aortic Valve The aortic valve is trileaflet. There is mild aortic valve sclerosis. There is no aortic valve stenosis. There is no aortic valve regurgitation. Pulmonic Valve There is no pulmonic regurgitation. Mitral Valve The mitral valve has moderately calcified annulus. There is no mitral valve stenosis. There is trace mitral valve regurgitation. Tricuspid Valve There is trace tricuspid valve regurgitation. No pulmonary hypertension, estimated pulmonary arterial systolic pressure is 37 mmHg. Pericardium/Pleural There is no pericardial effusion. Inferior Vena Cava Normal inferior vena cava with >50% collapse upon inspiration consistent with normal right atrial pressure, 5 mmHg. Aorta The aortic root size at the sinus of Valsalva is normal. Left Ventricular Outflow Tract Name Value Normal LVOT 2D LVOT Diameter 2.0 cm LVOT Doppler LVOT Peak Gradient 5 mmHg LVOT Mean Gradient 3 mmHg LVOT VTI 23 cm LVOT VTI/AV VTI Ratio 0.8 LVOT Stroke Volume 76 ml LVOT CO 6.7 l/min LVOT CI 3.6 l/min/
[2022-01-26] VITALS (18 sets, daily range): BP systolic 127–185; BP diastolic 59–78; PULSE 67–87; RESP 16–20; TEMP 36.6–36.9; O2SAT 95–100
[2022-01-26 04:38] LABS: Basophils Percent Auto 0.5 % (0.2-1.2); Eosinophils Absolute Auto 0.1 K/mm3 (0-0.3); Eosinophils Percent Auto 2.2 % (0-4.4); Hematocrit 30.4 % (37.0-47.0); Hemoglobin 10.5 g/dL (12.0-15.0); Immature Granulocyte Absolute 0.01 K/mm3 (0.00-0.031); Immature Granulocyte Percent A 0.3 % (0-0.5); Immature Platelet Fraction Pct 1.6 % (0.9-11.2); Lymphocytes Absolute Auto 0.81 K/mm3 (0.9-3.2); Lymphocytes Percent Auto 22.3 % (18.3-44.2); Mean Corpuscular HGB Conc 34.5 g/dl (32-36); Mean Corpuscular Hemoglobin 32.6 pg (26-34); Mean Corpuscular Volume 94.4 fl (80-100); Mean Platelet Volume 9.4 fl (7.4-10.4); Monocytes Absolute Auto 0.5 K/mm3 (0.1-0.6); Monocytes Percent Auto 12.6 % (2.6-8.5); Neutrophils Absolute Auto 2.3 K/mm3 (1.3-6.7); Neutrophils Percent Auto 62.1 % (45.5-73.1); Platelet Count Result 79 k/mm3 (150-375); Red Blood Count 3.22 M/mm3 (4.2-5.4); White Blood Count 3.6 K/mm3 (4.5-10.0)
[2022-01-26 04:48] LABS: Hemoglobin A1C 4.4 % (<5.7)
[2022-01-26 04:49] LABS: Alanine Aminotransferase 17 U/L (4-35); Albumin Level 3.2 g/dL (3.5-5.1); Alkaline Phosphatase 49 U/L (38-126); Anion Gap 6 mmol/L (8-16); Aspartate Amino Transferase 31 U/L (14-36); Bilirubin,Total 1.2 mg/dL (0.2-1.3); Blood Urea Nitrogen 10 mg/dL (7-17); Calcium 8.4 mg/dL (8.4-10.2); Carbon Dioxide 23 mmol/L (22-30); Chloride 107 mmol/L (98-107); Estimated CRCL calculation 64 ml/min; Estimated Glomerular Filt Rate > 60; Glucose 89 mg/dL (65-110); Potassium 2.9 mmol/L (3.4-5.0); Sodium 136 mmol/L (137-145)
[2022-01-26] MEDS: POTASSIUM CHLORIDE 20 MEQ TABLET 40 MEQ PO ×2 (05:48→08:10)
[2022-01-26 07:28] LABS: Glucose Point of Care 95 mg/dl (65-105)
[2022-01-26] MEDS: ATORVASTATIN 20 MG TABLET PO (08:08)
[2022-01-26] MEDS: AMANTADINE HCL 100 MG CAPSULE PO ×2 (08:08→17:18)
[2022-01-26] MEDS: FERROUS SULFATE 324 MG TABLET PO (08:08)
[2022-01-26] MEDS: CHOLECALCIFEROL 1,000 UNITS TABLET 1000 UNITS PO (08:09)
[2022-01-26] MEDS: GABAPENTIN 300 MG CAPSULE 600 MG PO (08:09)
[2022-01-26] MEDS: lisinopriL 20 MG TABLET PO (08:09)
[2022-01-26] MEDS: CITALOPRAM HYDROBROMIDE 20 MG TABLET 40 MG PO (08:09)
[2022-01-26] MEDS: GABAPENTIN 100 MG CAPSULE PO (08:09)
[2022-01-26] MEDS: INSULIN GLARGINE (*BKC) 100 UNITS/ML 16 UNITS SUB-Q (08:14)
[2022-01-26] MEDS: ACETAMINOPHEN 325 MG TABLET 650 MG PO (08:29)
[2022-01-26 11:29] LABS: Glucose Point of Care 94 mg/dl (65-105)
[2022-01-26 12:38] LABS: Ammonia 15 umol/L (9-30)
[2022-01-26 12:40] LABS: Magnesium 1.4 mg/dL (1.6-2.3); Potassium 3.9 mmol/L (3.4-5.0)
[2022-01-26 12:50] LABS: Iron 99 ug/dL (37-170)
[2022-01-26 12:59] LABS: Percent Iron Saturation 32 % (20-50)
[2022-01-26 13:30] LABS: Hepatitis B Surface Antigen Negative (Negative)
[2022-01-26 13:44] LABS: Folic Acid 5.3 ng/mL (2.76->20)
[2022-01-26 13:46] LABS: Hepatitis B Surface Anti Res Negative
--- NOTE | 2022-01-26 13:48 | PCCCNOTE ---
On 01/26/22, the student, [Mary Khan], provided care and completed [facility] documentation on this patient. I have reviewed the student's documentation and agree with the findings.
[2022-01-26 13:49] LABS: Hepatitis C Virus Antibody Negative (Negative)
--- NOTE | 2022-01-26 15:11 | PM.IMPN ---
Progress Note: A&P Assessment and Plan (1) Bacteremia: Code(s): R78.81 - Bacteremia Status: Acute Assessment and Plan: Blood cultures were drawn due to elevated lactic acid and hypotension. BCx (2of2) positive for Staph Epi in both anaerobic and aerobic bottles. UA noted but UCx normal nikolas. Chest x-ray was clear. No obvious skin sources. Could be contaminant. Continue vancomycin. Repeat blood cultures. (2) Orthostatic hypotension: Code(s): I95.1 - Orthostatic hypotension Status: Acute Assessment and Plan: On EMS arrival, blood pressure was 72/54 and 64/42. Patient on lisinopril at home. TSH 6.18 but not felt to be etiology. CTA negative for PE or other acute findings. Possibly related to sepsis with septic shock given positive blood cultures. Her HTN may be overtreated given her recent weight loss. She could be dehydrated. Could also be orthostatic hypotension related to autonomic insufficiency. With IV fluids, her blood pressure has now become hypertensive. Lisinopril was already resumed. Will continue to monitor for now. (3) Elevated lactic acid level: Code(s): R79.89 - Other specified abnormal findings of blood chemistry Status: Acute Assessment and Plan: Most likely related to hypoperfusion secondary to orthostatic hypotension. Infection appears unlikely although now she has positive blood cultures. Lactic acid level has normalized. As above (4) Elevated troponin: Code(s): R77.8 - Other specified abnormalities of plasma proteins Status: Acute Assessment and Plan: Troponin elevated 0.14. EKG shows normal sinus rhythm with age-indeterminate inferior infarct and nonspecific ST changes and poor R-wave progression but overall x-ray similar to EKG from October. Repeat EKG showing no significant change. Echo shows EF of 65-70% and grade 1 diastolic dysfunction. No wall motion abnormalities noted. Feel elevated troponin related to hypotensive event given how lower blood pressure was. Continue to monitor. Okay to stop telemetry. (5) Diarrhea: Qualifiers: Diarrhea type: unspecified type Qualified Code(s): R19.7 - Diarrhea, unspecified Code(s): R19.7 - Diarrhea, unspecified Status: Acute Assessment and Plan: Patient states she has chronic diarrhea that comes and goes. No recent antibiotics to suggest C diff. No diarrhea now. Follow-up with PCP as outpatient. (6) Chronic ITP (idiopathic thrombocytopenia): Code(s): D69.3 - Immune thrombocytopenic purpura Status: Acute Assessment and Plan: Platelet count has been low in the past but was normal on admission. Platelet count today is 79K. will continue to monitor closely. (7) Type 2 diabetes mellitus without complications: Code(s): E11.9 - Type 2 diabetes mellitus without complications Status: Acute Assessment and Plan: A1c 4.4. Patient on Lantus and metformin at home. Lantus resumed at lower dose. Glucose too well controlled. Probably related to her weight loss and now over-treated for her DM. Continue AccuCheks covering with sliding scale. Hypoglycemia protocol available as needed. Decrese Lantus dosing. (8) Essential (primary) hypertension: Code(s): I10 - Essential (primary) hypertension Status: Acute Assessment and Plan: As above. (9) Multiple sclerosis: Code(s): G35 - Multiple sclerosis Status: Acute Assessment and Plan: Stable. Follow-up with PCP. Teddy PT/OT (10) Hypokalemia: Code(s): E87.6 - Hypokalemia Status: Acute Assessment and Plan: Potassium low again. Continue to replace. (11) DVT prophylaxis: Code(s): Z29.9 - Encounter for prophylactic measures, unspecified Status: Acute Assessment and Plan: SCDs. Subjective Date/time seen: 01/26/22 15:11 Interval history: 76yo female wi
[2022-01-26] MEDS: MAGNESIUM SULF 2 GM/WATER 50ML 2 GM/50 ML BAG IVPB (15:51)
[2022-01-26 16:20] LABS: Glucose Point of Care 132 mg/dl (65-105)
--- NOTE | 2022-01-26 18:04 | PC.NURSE ---
This patient, Duong Haddad, was transferred to [[id number] ] on 01/26/22 at 1750. Personal belongings sent with patient. Report given to [Viviana ]. Appropriate documentation sent with patient.
--- NOTE | 2022-01-26 18:14 | PC.NURSE ---
This patient, Duong Haddad, was received from [ [id number]/] to room 321/02 on 01/26/22 at 1753. Patient/family oriented to unit policies and routines
[2022-01-26] MEDS: MELATONIN 3 MG TABLET PO (21:10)
[2022-01-26 21:31] LABS: Glucose Point of Care 157 mg/dl (65-105)
[2022-01-27 06:00] VITALS: BP 157/69; PULSE 74; RESP 18; TEMP 36.4; O2SAT 98
[2022-01-27 07:23] LABS: Eosinophils Absolute Auto 0.1 K/mm3 (0-0.3); Eosinophils Percent Auto 3.1 % (0-4.4); Hematocrit 31.9 % (37.0-47.0); Hemoglobin 11.3 g/dL (12.0-15.0); Immature Granulocyte Absolute 0.02 K/mm3 (0.00-0.031); Immature Granulocyte Percent A 0.5 % (0-0.5); Immature Platelet Fraction Pct 1.9 % (0.9-11.2); Lymphocytes Absolute Auto 0.65 K/mm3 (0.9-3.2); Lymphocytes Percent Auto 16.6 % (18.3-44.2); Mean Corpuscular HGB Conc 35.4 g/dl (32-36); Mean Corpuscular Hemoglobin 32.6 pg (26-34); Mean Corpuscular Volume 91.9 fl (80-100); Mean Platelet Volume 9.4 fl (7.4-10.4); Monocytes Absolute Auto 0.5 K/mm3 (0.1-0.6); Monocytes Percent Auto 11.5 % (2.6-8.5); Neutrophils Absolute Auto 2.6 K/mm3 (1.3-6.7); Neutrophils Percent Auto 67.3 % (45.5-73.1); Platelet Count Result 84 k/mm3 (150-375); Red Blood Count 3.47 M/mm3 (4.2-5.4); Red Cell Distribution Width 12.7 % (11.5-14.5); White Blood Count 3.9 K/mm3 (4.5-10.0)
[2022-01-27 07:34] LABS: Alanine Aminotransferase 18 U/L (4-35); Albumin Level 3.4 g/dL (3.5-5.1); Alkaline Phosphatase 50 U/L (38-126); Anion Gap 4 mmol/L (8-16); Aspartate Amino Transferase 29 U/L (14-36); Bilirubin,Total 1.2 mg/dL (0.2-1.3); Blood Urea Nitrogen 7 mg/dL (7-17); Calcium 8.2 mg/dL (8.4-10.2); Carbon Dioxide 28 mmol/L (22-30); Chloride 104 mmol/L (98-107); Estimated CRCL calculation 62 ml/min; Estimated Glomerular Filt Rate > 60; Glucose 132 mg/dL (65-110); Potassium 3.1 mmol/L (3.4-5.0); Sodium 136 mmol/L (137-145)
[2022-01-27 07:59] LABS: Glucose Point of Care 121 mg/dl (65-105)
[2022-01-27 08:00] VITALS: BP 112/93; BP 149/60; BP 154/77
[2022-01-27] MEDS: AMANTADINE HCL 100 MG CAPSULE PO ×2 (08:19→16:44)
[2022-01-27] MEDS: FERROUS SULFATE 324 MG TABLET PO (08:19)
[2022-01-27] MEDS: ATORVASTATIN 20 MG TABLET PO (08:19)
[2022-01-27] MEDS: CITALOPRAM HYDROBROMIDE 20 MG TABLET 40 MG PO (08:19)
[2022-01-27] MEDS: CHOLECALCIFEROL 1,000 UNITS TABLET 1000 UNITS PO (08:19)
[2022-01-27] MEDS: lisinopriL 20 MG TABLET PO (08:19)
[2022-01-27] MEDS: GABAPENTIN 100 MG CAPSULE PO (08:19)
[2022-01-27] MEDS: GABAPENTIN 300 MG CAPSULE 600 MG PO (08:19)
[2022-01-27] MEDS: INSULIN GLARGINE (*BKC) 100 UNITS/ML 10 UNITS SUB-Q (08:20)
--- NOTE | 2022-01-27 10:56 | PM.IMPN ---
Progress Note: A&P Assessment and Plan (1) Bacteremia: Code(s): R78.81 - Bacteremia Status: Acute Assessment and Plan: Blood cultures were drawn due to elevated lactic acid and hypotension. BCx (2of2) positive for Staph Epi in both anaerobic and aerobic bottles. UA noted but UCx normal nikolas. Chest x-ray was clear. No obvious skin sources. Could be contaminant. Continue vancomycin. Repeat blood cultures if repeat blood culture negative will DC IV antibiotic patient has multiple allergies to penicillin and sulfa. (2) Orthostatic hypotension: Code(s): I95.1 - Orthostatic hypotension Status: Acute Assessment and Plan: On EMS arrival, blood pressure was 72/54 and 64/42. Patient on lisinopril at home. TSH 6.18 but not felt to be etiology. CTA negative for PE or other acute findings. Possibly related to dehydration and blood pressure medication I do not think patient has septic shock pending repeat culture. Her HTN may be overtreated given her recent weight loss. She could be dehydrated. Could also be orthostatic hypotension related to autonomic insufficiency. With IV fluids, her blood pressure has now become hypertensive. Lisinopril was already resumed. Will continue to monitor for now. (3) Elevated lactic acid level: Code(s): R79.89 - Other specified abnormal findings of blood chemistry Status: Acute Assessment and Plan: Most likely related to hypoperfusion secondary to orthostatic hypotension. Infection appears unlikely although now she has positive blood cultures. Lactic acid level has normalized. But also patient was on metformin at home Consider DC metformin from home medication re-evaluate as outpatient (4) Elevated troponin: Code(s): R77.8 - Other specified abnormalities of plasma proteins Status: Acute Assessment and Plan: Troponin elevated 0.14. EKG shows normal sinus rhythm with age-indeterminate inferior infarct and nonspecific ST changes and poor R-wave progression but overall x-ray similar to EKG from October. Repeat EKG showing no significant change. Echo shows EF of 65-70% and grade 1 diastolic dysfunction. No wall motion abnormalities noted. Feel elevated troponin related to hypotensive event given how lower blood pressure was. Continue to monitor. Most likely NSTEMI type 2 secondary to demand ischemia secondary to hypotension. (5) Diarrhea: Qualifiers: Diarrhea type: unspecified type Qualified Code(s): R19.7 - Diarrhea, unspecified Code(s): R19.7 - Diarrhea, unspecified Status: Acute Assessment and Plan: Patient states she has chronic diarrhea that comes and goes. No recent antibiotics to suggest C diff. No diarrhea now. Follow-up with PCP as outpatient. (6) Chronic ITP (idiopathic thrombocytopenia): Code(s): D69.3 - Immune thrombocytopenic purpura Status: Acute Assessment and Plan: Platelet count has been low in the past but was normal on admission. Platelet count today is 79K. will continue to monitor closely. (7) Type 2 diabetes mellitus without complications: Code(s): E11.9 - Type 2 diabetes mellitus without complications Status: Acute Assessment and Plan: A1c 4.4. Patient on Lantus and metformin at home. Lantus resumed at lower dose. Glucose too well controlled. Probably related to her weight loss and now over-treated for her DM. Continue AccuCheks covering with sliding scale. Hypoglycemia protocol available as needed. Decrese Lantus dosing. (8) Essential (primary) hypertension: Code(s): I10 - Essential (primary) hypertension Status: Acute Assessment and Plan: Lisinopril (9) Multiple sclerosis: Code(s): G35 - Multiple sclerosis Status: Acute Assessment and Plan: Stable. Follow-up with PCP. Contineu PT/OT (10) Hypokalemia: Code(s): E87.6 - Hypokalemia Status: Acu
[2022-01-27 11:24] LABS: Magnesium 1.5 mg/dL (1.6-2.3)
[2022-01-27] MEDS: MAGNESIUM SULF 2 GM/WATER 50ML 2 GM/50 ML BAG IVPB (11:39)
[2022-01-27] MEDS: POTASSIUM CHLORIDE 20 MEQ TABLET 40 MEQ PO (11:39)
[2022-01-27 11:58] LABS: Glucose Point of Care 86 mg/dl (65-105)
[2022-01-27 14:00] VITALS: BP 152/68; PULSE 76; RESP 18; TEMP 36.3; O2SAT 99
[2022-01-27 16:59] LABS: Glucose Point of Care 126 mg/dl (65-105)
[2022-01-27 20:40] VITALS: BP 152/68; PULSE 76; RESP 18; TEMP 36.3; O2SAT 99
[2022-01-27] MEDS: MELATONIN 3 MG TABLET PO (20:49)
[2022-01-27 22:00] VITALS: BP 156/75; PULSE 77; RESP 16; TEMP 36.8; O2SAT 99
[2022-01-27 23:28] LABS: Vancomycin Trough 11.9 ug/mL (10.0-20.0)
[2022-01-28 00:04] LABS: Glucose Point of Care 110 mg/dl (65-105)
[2022-01-28 06:00] VITALS: BP 123/84; PULSE 77; RESP 16; TEMP 36.5; O2SAT 99
[2022-01-28] MEDS: CITALOPRAM HYDROBROMIDE 20 MG TABLET 40 MG PO (08:31)
[2022-01-28] MEDS: lisinopriL 20 MG TABLET PO (08:31)
[2022-01-28] MEDS: FERROUS SULFATE 324 MG TABLET PO (08:31)
[2022-01-28] MEDS: CHOLECALCIFEROL 1,000 UNITS TABLET 1000 UNITS PO (08:31)
[2022-01-28] MEDS: ATORVASTATIN 20 MG TABLET PO (08:31)
[2022-01-28] MEDS: AMANTADINE HCL 100 MG CAPSULE PO ×2 (08:31→17:19)
[2022-01-28] MEDS: GABAPENTIN 300 MG CAPSULE 600 MG PO (08:31)
[2022-01-28] MEDS: GABAPENTIN 100 MG CAPSULE PO (08:32)
[2022-01-28] MEDS: INSULIN GLARGINE (*BKC) 100 UNITS/ML 10 UNITS SUB-Q (08:32)
[2022-01-28 08:39] LABS: Glucose Point of Care 107 mg/dl (65-105)
--- NOTE | 2022-01-28 09:31 | PM.IMPN ---
Progress Note: A&P Assessment and Plan (1) Bacteremia: Code(s): R78.81 - Bacteremia Status: Acute Assessment and Plan: Blood cultures were drawn due to elevated lactic acid and hypotension. BCx (2of2) positive for Staph Epi in both anaerobic and aerobic bottles. UA noted but UCx normal nikolas. Chest x-ray was clear. No obvious skin sources. Could be contaminant. Continue vancomycin. Repeat blood cultures negative so far most likely contaminant DC antibiotic and re-evaluate overnight. (2) Orthostatic hypotension: Code(s): I95.1 - Orthostatic hypotension Status: Acute Assessment and Plan: On EMS arrival, blood pressure was 72/54 and 64/42. Patient on lisinopril at home. TSH 6.18 but not felt to be etiology. CTA negative for PE or other acute findings. Possibly related to dehydration and blood pressure medication I do not think patient has septic shock pending repeat culture. Her HTN may be overtreated given her recent weight loss. She could be dehydrated. Could also be orthostatic hypotension related to autonomic insufficiency. With IV fluids, her blood pressure has now become hypertensive. Lisinopril was already resumed. Will continue to monitor for now. (3) Elevated lactic acid level: Code(s): R79.89 - Other specified abnormal findings of blood chemistry Status: Acute Assessment and Plan: Most likely related to hypoperfusion secondary to orthostatic hypotension. Infection appears unlikely although now she has positive blood cultures. Lactic acid level has normalized. But also patient was on metformin at home Consider DC metformin from home medication re-evaluate as outpatient (4) Elevated troponin: Code(s): R77.8 - Other specified abnormalities of plasma proteins Status: Acute Assessment and Plan: Troponin elevated 0.14. EKG shows normal sinus rhythm with age-indeterminate inferior infarct and nonspecific ST changes and poor R-wave progression but overall x-ray similar to EKG from October. Repeat EKG showing no significant change. Echo shows EF of 65-70% and grade 1 diastolic dysfunction. No wall motion abnormalities noted. Feel elevated troponin related to hypotensive event given how lower blood pressure was. Continue to monitor. Most likely NSTEMI type 2 secondary to demand ischemia secondary to hypotension. (5) Diarrhea: Qualifiers: Diarrhea type: unspecified type Qualified Code(s): R19.7 - Diarrhea, unspecified Code(s): R19.7 - Diarrhea, unspecified Status: Acute Assessment and Plan: Patient states she has chronic diarrhea that comes and goes. No recent antibiotics to suggest C diff. No diarrhea now. Follow-up with PCP as outpatient. (6) Chronic ITP (idiopathic thrombocytopenia): Code(s): D69.3 - Immune thrombocytopenic purpura Status: Acute Assessment and Plan: Platelet count has been low in the past but was normal on admission. Platelet count today is 79K. will continue to monitor closely. (7) Type 2 diabetes mellitus without complications: Code(s): E11.9 - Type 2 diabetes mellitus without complications Status: Acute Assessment and Plan: A1c 4.4. Patient on Lantus and metformin at home. Lantus resumed at lower dose. Glucose too well controlled. Probably related to her weight loss and now over-treated for her DM. Continue AccuCheks covering with sliding scale. Hypoglycemia protocol available as needed. Decrese Lantus dosing. (8) Essential (primary) hypertension: Code(s): I10 - Essential (primary) hypertension Status: Acute Assessment and Plan: Lisinopril (9) Multiple sclerosis: Code(s): G35 - Multiple sclerosis Status: Acute Assessment and Plan: Stable. Follow-up with PCP. Contineu PT/OT (10) Hypokalemia: Code(s): E87.6 - Hypokalemia Status: Acute Assessment and Plan:
[2022-01-28] MEDS: MAGNESIUM SULF 2 GM/WATER 50ML 2 GM/50 ML BAG IVPB (10:04)
[2022-01-28 10:18] LABS: Basophils Percent Auto 0.9 % (0.2-1.2); Eosinophils Absolute Auto 0.1 K/mm3 (0-0.3); Eosinophils Percent Auto 2.9 % (0-4.4); Hematocrit 31.8 % (37.0-47.0); Hemoglobin 11.1 g/dL (12.0-15.0); Immature Granulocyte Absolute 0.02 K/mm3 (0.00-0.031); Immature Granulocyte Percent A 0.6 % (0-0.5); Lymphocytes Absolute Auto 0.63 K/mm3 (0.9-3.2); Lymphocytes Percent Auto 18.1 % (18.3-44.2); Mean Corpuscular HGB Conc 34.9 g/dl (32-36); Mean Corpuscular Volume 91.6 fl (80-100); Mean Platelet Volume 9.7 fl (7.4-10.4); Monocytes Absolute Auto 0.5 K/mm3 (0.1-0.6); Monocytes Percent Auto 12.9 % (2.6-8.5); Neutrophils Absolute Auto 2.3 K/mm3 (1.3-6.7); Neutrophils Percent Auto 64.6 % (45.5-73.1); Platelet Count Result 84 k/mm3 (150-375); Red Blood Count 3.47 M/mm3 (4.2-5.4); Red Cell Distribution Width 12.9 % (11.5-14.5); White Blood Count 3.5 K/mm3 (4.5-10.0)
[2022-01-28 10:30] LABS: Alanine Aminotransferase 18 U/L (4-35); Albumin Level 3.4 g/dL (3.5-5.1); Alkaline Phosphatase 49 U/L (38-126); Anion Gap 6 mmol/L (8-16); Aspartate Amino Transferase 29 U/L (14-36); Bilirubin,Total 1.2 mg/dL (0.2-1.3); Blood Urea Nitrogen 6 mg/dL (7-17); Calcium 8.2 mg/dL (8.4-10.2); Carbon Dioxide 27 mmol/L (22-30); Chloride 103 mmol/L (98-107); Estimated CRCL calculation 63 ml/min; Estimated Glomerular Filt Rate > 60; Glucose 208 mg/dL (65-110); Sodium 136 mmol/L (137-145)
[2022-01-28 12:16] LABS: Glucose Point of Care 108 mg/dl (65-105)
[2022-01-28 14:00] VITALS: BP 115/83; BP 147/68; BP 152/74; PULSE 83; RESP 16; TEMP 36.4; O2SAT 99
[2022-01-28] MEDS: POTASSIUM CHLORIDE 20 MEQ TABLET 40 MEQ PO (14:01)
[2022-01-28 14:07] LABS: Magnesium 1.6 mg/dL (1.6-2.3)
[2022-01-28 17:02] LABS: Glucose Point of Care 101 mg/dl (65-105)
[2022-01-28 20:00] VITALS: BP 150/62
[2022-01-28 20:02] VITALS: BP 151/78
[2022-01-28 20:05] VITALS: BP 141/70
[2022-01-28] MEDS: MELATONIN 3 MG TABLET PO (20:54)
[2022-01-28 22:00] VITALS: BP 182/70; PULSE 71; RESP 18; TEMP 36.4; O2SAT 100
[2022-01-28 22:00] LABS: Glucose Point of Care 115 mg/dl (65-105)
[2022-01-29 06:00] VITALS: BP 155/72; PULSE 79; RESP 18; TEMP 36.3; O2SAT 100
[2022-01-29 06:43] LABS: Basophils Absolute Auto 0.1 K/mm3 (0.0-0.1); Basophils Percent Auto 1.1 % (0.2-1.2); Eosinophils Absolute Auto 0.2 K/mm3 (0-0.3); Eosinophils Percent Auto 4.2 % (0-4.4); Hematocrit 35.2 % (37.0-47.0); Hemoglobin 12.2 g/dL (12.0-15.0); Immature Granulocyte Absolute 0.02 K/mm3 (0.00-0.031); Immature Granulocyte Percent A 0.4 % (0-0.5); Immature Platelet Fraction Pct 2.6 % (0.9-11.2); Lymphocytes Absolute Auto 1.09 K/mm3 (0.9-3.2); Mean Corpuscular HGB Conc 34.7 g/dl (32-36); Mean Corpuscular Hemoglobin 32.4 pg (26-34); Mean Corpuscular Volume 93.4 fl (80-100); Mean Platelet Volume 9.5 fl (7.4-10.4); Monocytes Absolute Auto 0.6 K/mm3 (0.1-0.6); Monocytes Percent Auto 12.9 % (2.6-8.5); Neutrophils Absolute Auto 2.8 K/mm3 (1.3-6.7); Neutrophils Percent Auto 58.4 % (45.5-73.1); Platelet Count Result 124 k/mm3 (150-375); Red Blood Count 3.77 M/mm3 (4.2-5.4); White Blood Count 4.7 K/mm3 (4.5-10.0)
[2022-01-29 06:52] LABS: Alanine Aminotransferase 21 U/L (4-35); Albumin Level 3.5 g/dL (3.5-5.1); Alkaline Phosphatase 63 U/L (38-126); Anion Gap 5 mmol/L (8-16); Aspartate Amino Transferase 36 U/L (14-36); Bilirubin,Total 1.2 mg/dL (0.2-1.3); Blood Urea Nitrogen 9 mg/dL (7-17); Calcium 8.5 mg/dL (8.4-10.2); Carbon Dioxide 29 mmol/L (22-30); Chloride 104 mmol/L (98-107); Estimated CRCL calculation 63 ml/min; Estimated Glomerular Filt Rate > 60; Glucose 104 mg/dL (65-110); Potassium 3.5 mmol/L (3.4-5.0); Sodium 138 mmol/L (137-145)
[2022-01-29 08:00] VITALS: PULSE 79; RESP 18; O2SAT 100
[2022-01-29 08:07] LABS: Glucose Point of Care 108 mg/dl (65-105)
[2022-01-29] MEDS: GABAPENTIN 100 MG CAPSULE PO (08:15)
[2022-01-29] MEDS: FERROUS SULFATE 324 MG TABLET PO (08:15)
[2022-01-29] MEDS: CITALOPRAM HYDROBROMIDE 20 MG TABLET 40 MG PO (08:15)
[2022-01-29] MEDS: lisinopriL 20 MG TABLET PO (08:15)
[2022-01-29] MEDS: CHOLECALCIFEROL 1,000 UNITS TABLET 1000 UNITS PO (08:15)
[2022-01-29] MEDS: AMANTADINE HCL 100 MG CAPSULE PO (08:16)
[2022-01-29] MEDS: GABAPENTIN 300 MG CAPSULE 600 MG PO (08:16)
[2022-01-29] MEDS: ATORVASTATIN 20 MG TABLET PO (08:17)
[2022-01-29] MEDS: INSULIN GLARGINE (*BKC) 100 UNITS/ML 10 UNITS SUB-Q (09:44)
[2022-01-29 09:45] LABS: Glucose Point of Care 194 mg/dl (65-105)
--- NOTE | 2022-01-29 11:02 | PM.DS ---
DS: Admitting Diagnosis Discharge Date 01/29/22 Admitting Diagnosis Near-syncope episode DS: Discharge Diagnosis Discharge Diagnosis (1) Bacteremia: Code(s): R78.81 - Bacteremia Status: Acute Assessment and Plan: Blood cultures were drawn due to elevated lactic acid and hypotension. BCx (2of2) positive for Staph Epi in both anaerobic and aerobic bottles. UA noted but UCx normal nikolas. Chest x-ray was clear. No obvious skin sources. Treated with Vancomycin but stopped because felt to be a contaminant. TTE showing no obvious valvular vegetations. Repeat blood cultures NGTD. Most likely contaminant. Patient instructed that she should monitor for symptoms. (2) Orthostatic hypotension: Code(s): I95.1 - Orthostatic hypotension Status: Acute Assessment and Plan: On EMS arrival, blood pressure was 72/54 and 64/42. Patient with orthostatic hypotension. Patient on lisinopril at home. TSH 6.18 but not felt to be etiology. Cortisol level normal. CTA negative for PE or other acute findings. Possibly related to dehydration and/or blood pressure medication and/or Amantadine; unlikely to be septic shock. Her HTN may be overtreated given her recent weight loss. Could also be orthostatic hypotension related to autonomic insufficiency. With IV fluids, her blood pressure became hypertensive. Lisinopril was already resumed and she tolerated this. Her amantadine was continued while hospitalized which she tolerated. She does have wide fluctuations in her BP. Will have patient continue to monitor at home. (3) Elevated lactic acid level: Code(s): R79.89 - Other specified abnormal findings of blood chemistry Status: Acute Assessment and Plan: Most likely related to hypoperfusion secondary to orthostatic hypotension. Infection was on concern due to the positive BCx but felt less likely. Lactic acid level has normalized. But also patient was on metformin at home which was held. (4) Elevated troponin: Code(s): R77.8 - Other specified abnormalities of plasma proteins Status: Acute Assessment and Plan: Troponin elevated 0.14. EKG shows normal sinus rhythm with age-indeterminate inferior infarct and nonspecific ST changes and poor R-wave progression but overall x-ray similar to EKG from October. Repeat EKG showing no significant change. Echo shows EF of 65-70% and grade 1 diastolic dysfunction. No wall motion abnormalities noted. Feel elevated troponin related to hypotensive event given how lower blood pressure was. (5) Diarrhea: Qualifiers: Diarrhea type: unspecified type Qualified Code(s): R19.7 - Diarrhea, unspecified Code(s): R19.7 - Diarrhea, unspecified Status: Acute Assessment and Plan: Patient states she has chronic diarrhea that comes and goes. No recent antibiotics to suggest C diff. No diarrhea now. Patient will follow-up with PCP as outpatient. (6) Chronic ITP (idiopathic thrombocytopenia): Code(s): D69.3 - Immune thrombocytopenic purpura Status: Acute Assessment and Plan: Platelet count has been low in the past but was normal on admission. Platelet count dropped to 79K but better at 124K. (7) Type 2 diabetes mellitus without complications: Code(s): E11.9 - Type 2 diabetes mellitus without complications Status: Acute Assessment and Plan: A1c 4.4. Patient on Lantus and metformin at home. Glucose too well controlled. Probably related to her weight loss and now over-treated for her DM. Lantus resumed at lower dose and Metformin stopped. Byetta was held. Monitored with AccuCheks covering with sliding scale. Hypoglycemia protocol was available. Plan to stop Lantus and metformin at discharge and continue Byetta with close observation of glucose. (8) Essential (primary) hypertension: Code(s): I10 - Essential (primary) hypertension Status: Acute Asses
[2022-01-29 11:39] LABS: Glucose Point of Care 154 mg/dl (65-105)
[2022-01-30 18:20] LABS: Hepatitis B Core Ab Total Nonreactive (Nonreactive)
--- NOTE | 2022-02-01 09:48 | PC.NURSE ---
Hep B Core Total is nonreactive. Dr. Mariposa avelar.
--- NOTE | 2022-02-13 07:43 | PC.NURSE ---
A-1AT- pattern os PI*MM. Dr. Monge aware.
== END 2022-01-29 14:10 | disposition home or self-care (01) | DRG 312 ==
LOC: ANHED 18:38 → ANHIMU 19:37 → ANH3MEDSUR 01-29 11:22 → ANHIMU 01-30 12:35
PROVIDERS: Internal Medicine; Admitting Provider Internal Medicine; Emergency Provider Emergency Medicine; PCP Internal Medicine; Visit Provider Internal Medicine
DX: I95.1 Orthostatic hypotension (principal); R78.81 Bacteremia; D69.3 Immune thrombocytopenic purpura; I5A Non-ischemic myocardial injury (non-traumatic); Z20.822 Contact with and (suspected) exposure to COVID-19; E11.9 Type 2 diabetes mellitus without complications; G35 Multiple sclerosis; I10 Essential (primary) hypertension; E87.6 Hypokalemia; E86.0 Dehydration; K74.60 Unspecified cirrhosis of liver; R19.7 Diarrhea, unspecified; Z79.84 Long term (current) use of oral hypoglycemic drugs; Z98.42 Cataract extraction status, left eye; Z98.41 Cataract extraction status, right eye; Z96.1 Presence of intraocular lens; Z87.891 Personal history of nicotine dependence
CPT/HCPCS: 36415; 71045; 71275; 76705; 80053; 80202; 81001; 82104; 82140; 82533; 82607; 82728; 82746; 82948; 83036; 83540; 83550; 83605; 83735; 84132; 84439; 84443; 84480; 84484; 85025; 85055; 85610; 85730; 86140; 86704; 86706; 86803; 87040; 87077; 87086; 87088; 87186; 87340; 93005; 93306; 96361; 96365; 96366; 96367; 96372; 97161; 97165; 99285; A9270; C9803; G0378; J1650; J1815; J3370; J3475; J3480; J7030; J7040; Q9967; U0003; U0005

== ENCOUNTER 2022-10-01 13:53 | Outpatient (CLI) | payer MEDICARE, SELFPAY ==
[2022-10-01 15:03] LABS: Influenza A QL RT-PCR Positive (Negative); Influenza B QL RT-PCR Negative (Negative); SARS-CoV-2 RNA PCR Negative
== END 2022-10-01 13:54 | disposition home or self-care (01) ==
LOC: ANHLAB 13:55
PROVIDERS: PCP Internal Medicine; Visit Provider Internal Medicine
DX: R68.89 Other general symptoms and signs (principal); Z20.822 Contact with and (suspected) exposure to COVID-19
CPT/HCPCS: 87502; U0003; U0005

== ENCOUNTER 2023-04-20 10:54 | Outpatient (CLI) | payer MEDICARE, SELFPAY ==
[2023-04-20 11:19] LABS: Basophils Absolute Auto 0.1 K/mm3 (0.0-0.1); Basophils Percent Auto 1.3 % (0.2-1.2); Eosinophils Absolute Auto 0.2 K/mm3 (0-0.3); Eosinophils Percent Auto 3.3 % (0-4.4); Hemoglobin 12.7 g/dL (12.0-15.0); Immature Granulocyte Absolute 0.01 K/mm3 (0.00-0.031); Immature Granulocyte Percent A 0.2 % (0-0.5); Lymphocytes Absolute Auto 1.03 K/mm3 (0.9-3.2); Lymphocytes Percent Auto 22.9 % (18.3-44.2); Mean Corpuscular HGB Conc 32.6 g/dl (32-36); Mean Corpuscular Hemoglobin 30.2 pg (26-34); Mean Corpuscular Volume 92.9 fl (80-100); Mean Platelet Volume 9.4 fl (7.4-10.4); Monocytes Absolute Auto 0.5 K/mm3 (0.1-0.6); Monocytes Percent Auto 10.5 % (2.6-8.5); Neutrophils Absolute Auto 2.8 K/mm3 (1.3-6.7); Neutrophils Percent Auto 61.8 % (45.5-73.1); Platelet Count Result 117 k/mm3 (150-375); Red Cell Distribution Width 15.6 % (11.5-14.5); White Blood Count 4.5 K/mm3 (4.5-10.0)
[2023-04-20 11:35] LABS: Alanine Aminotransferase 25 U/L (6-35); Albumin Level 3.8 g/dL (3.5-5.1); Alkaline Phosphatase 81 U/L (38-126); Anion Gap 4 mmol/L (8-16); Aspartate Amino Transferase 33 U/L (14-36); Bilirubin,Total 0.9 mg/dL (0.2-1.3); Blood Urea Nitrogen 13 mg/dL (7-17); Calcium 8.4 mg/dL (8.4-10.2); Carbon Dioxide 31 mmol/L (22-30); Chloride 102 mmol/L (98-107); Cholesterol 180 mg/dL (0-200); Estimated Glomerular Filt Rate > 60; Glucose 150 mg/dL (65-110); HDL Direct 71 mg/dL; Iron 187 ug/dL (37-170); Magnesium 1.7 mg/dL (1.6-2.3); Potassium 3.8 mmol/L (3.4-5.0); Sodium 137 mmol/L (137-145); Triglycerides 102 mg/dL (<150)
[2023-04-20 11:44] LABS: Percent Iron Saturation 51 % (20-50)
[2023-04-20 11:46] LABS: LDL Cholesterol Direct 87 mg/dL
[2023-04-20 11:57] LABS: Free T4 Free Thyroxine 1.02 ng/mL (0.78-2.19)
[2023-04-20 13:35] LABS: Vitamin D 25 Hydroxy 40.7 ng/mL
[2023-04-25 14:06] LABS: Red Blood Cell Folate 772 ng/mL RBC (>280)
== END 2023-04-20 10:55 | disposition home or self-care (01) ==
LOC: ANHLAB 10:55
PROVIDERS: PCP Internal Medicine; Visit Provider Internal Medicine
DX: E55.9 Vitamin D deficiency, unspecified (principal); E03.9 Hypothyroidism, unspecified; I10 Essential (primary) hypertension; D64.9 Anemia, unspecified; E11.9 Type 2 diabetes mellitus without complications; Z79.4 Long term (current) use of insulin
CPT/HCPCS: 36415; 80053; 80061; 82306; 82607; 82747; 83540; 83550; 83735; 84439; 84443; 85025

== ENCOUNTER 2024-01-07 13:10 | Outpatient (CLI) | payer MEDICARE, SELFPAY ==
[2024-01-07 14:03] LABS: Basophils Absolute Auto 0.1 K/mm3 (0.0-0.1); Basophils Percent Auto 0.9 % (0.2-1.2); Eosinophils Absolute Auto 0.2 K/mm3 (0-0.3); Eosinophils Percent Auto 2.9 % (0-4.4); Hematocrit 38.8 % (37.0-47.0); Hemoglobin 13.1 g/dL (12.0-15.0); Immature Granulocyte Absolute 0.02 K/mm3 (0.00-0.031); Immature Granulocyte Percent A 0.4 % (0-0.5); Immature Platelet Fraction Pct 2.2 % (0.9-11.2); Lymphocytes Absolute Auto 1.06 K/mm3 (0.9-3.2); Lymphocytes Percent Auto 19.3 % (18.3-44.2); Mean Corpuscular HGB Conc 33.8 g/dl (32-36); Mean Corpuscular Volume 91.7 fl (80-100); Mean Platelet Volume 9.9 fl (7.4-10.4); Monocytes Absolute Auto 0.5 K/mm3 (0.1-0.6); Monocytes Percent Auto 9.7 % (2.6-8.5); Neutrophils Absolute Auto 3.7 K/mm3 (1.3-6.7); Neutrophils Percent Auto 66.8 % (45.5-73.1); Platelet Count Result 114 k/mm3 (150-375); Red Blood Count 4.23 M/mm3 (4.2-5.4); Red Cell Distribution Width 13.8 % (11.5-14.5); White Blood Count 5.5 K/mm3 (4.5-10.0)
[2024-01-07 14:21] LABS: Alanine Aminotransferase 17 U/L (6-35); Albumin Level 3.5 g/dL (3.5-5.1); Alkaline Phosphatase 92 U/L (38-126); Anion Gap 7 mmol/L (8-16); Aspartate Amino Transferase 30 U/L (14-36); Bilirubin,Total 1.4 mg/dL (0.2-1.3); Blood Urea Nitrogen 9 mg/dL (7-17); Calcium 8.4 mg/dL (8.4-10.2); Carbon Dioxide 30 mmol/L (22-30); Chloride 99 mmol/L (98-107); Cholesterol 172 mg/dL (0-200); Estimated Glomerular Filt Rate > 60; Glucose 179 mg/dL (65-110); HDL Direct 65 mg/dL; Potassium 2.5 mmol/L (3.4-5.0); Sodium 136 mmol/L (137-145); Triglycerides 125 mg/dL (<150)
[2024-01-07 14:22] LABS: LDL Cholesterol Direct 101 mg/dL
[2024-01-07 15:15] LABS: Folic Acid 12.4 ng/mL (2.76->20)
[2024-01-07 15:23] LABS: Iron 113 ug/dL (37-170)
[2024-01-07 15:32] LABS: Percent Iron Saturation 31 % (20-50)
[2024-01-07 16:01] LABS: Free T4 Free Thyroxine 1.29 ng/mL (0.78-2.19); Vitamin D 25 Hydroxy 22.7 ng/mL
[2024-01-07 16:55] LABS: Hemoglobin A1C 7.3 % (<5.7)
== END 2024-01-07 13:11 | disposition home or self-care (01) ==
PROVIDERS: PCP Internal Medicine; Visit Provider Physician Assistant
DX: E11.9 Type 2 diabetes mellitus without complications (principal); R53.83 Other fatigue; E03.9 Hypothyroidism, unspecified; E61.1 Iron deficiency; E55.9 Vitamin D deficiency, unspecified
CPT/HCPCS: 36415; 80053; 80061; 82306; 82607; 82746; 83036; 83540; 83550; 84439; 84443; 85025; 85055

== ENCOUNTER 2024-01-08 13:43 | Outpatient (CLI) | payer MEDICARE, SELFPAY ==
[2024-01-08 14:45] LABS: Microalbumin Urine Random 30.9 mg/L (0-16.7)
[2024-01-08 14:55] LABS: Creatinine Urine 103.5 mg/dL; MALB Creatinine Ratio 29.9 mg/g (0-30)
== END 2024-01-08 13:44 | disposition home or self-care (01) ==
PROVIDERS: PCP Internal Medicine; Visit Provider Physician Assistant
DX: E11.9 Type 2 diabetes mellitus without complications (principal)
CPT/HCPCS: 82043

== ENCOUNTER 2024-02-10 10:44 | Outpatient (CLI) | payer MEDICARE, SELFPAY ==
[2024-02-10 11:22] LABS: Anion Gap 5 mmol/L (4-12); Blood Urea Nitrogen 14 mg/dL (7-17); Calcium 9.4 mg/dL (8.4-10.2); Carbon Dioxide 28 mmol/L (22-30); Chloride 103 mmol/L (98-107); Estimated Glomerular Filt Rate > 60; Glucose 193 mg/dL (65-110); Potassium 3.5 mmol/L (3.4-5.0); Sodium 136 mmol/L (137-145)
== END 2024-02-10 10:45 | disposition home or self-care (01) ==
LOC: ANHLAB 10:47
PROVIDERS: PCP Internal Medicine; Visit Provider Physician Assistant
DX: E87.6 Hypokalemia (principal)
CPT/HCPCS: 36415; 80048

== ENCOUNTER 2024-07-16 15:14 | Inpatient (IN) | payer MEDICARE, SELFPAY ==
--- NOTE | ~2024-07-16 | CT_ITS ---
CT facial & cervical spine wo Ordering provider: Antonette Ortiz PA-C History: . fall . Comparison: None. Technique: Thin slice axial CT of the facial bones was performed without contrast. Coronal and sagit michaela reformatted images were also obtained. . Automated exposure control and iterative reconstruction technique were employed. The dose-length product was 499.26 mGy-cm. FINDINGS: PARANASAL SINUSES: Well aerated. Left nasal septal deviation. BONES: No facial fracture including no nasal bone fracture. ORBITS AND SUPERFICIAL SOFT TISSUES: The optic globes and orbits are normal. The superficial soft tis sues are normal. VISUALIZED MASTOIDS: Well aerated. LIMITED VISUALIZED BRAIN PARENCHYMA: Normal. IMPRESSION: No facial fracture. CT facial & cervical spine wo Ordering provider: Antonette Ortiz PA-C History: . fall . Comparison: None. Technique: CT of the cervical spine was performed without contrast. Sagittal and coronal reformatted images were also obtained and reviewed. Automated exposure control and iterative reconstruction fabricio hnique were employed. The dose-length product was 499.26 mGy-cm. FINDINGS: VERTEBRAE: No subluxation or acute fracture. The occipital condyles are intact. DISC SPACES: Degenerative disc disease seen at the level of C6-C7 and C7-T1. Multilevel facet joint d isease. PARASPINOUS SOFT TISSUES: Normal. Multiple nodules in both upper lobes of the lungs which is suggesti ve of metastatic lesions. Enlarged mediastinal lymph nodes are also noted. Clinical correlation and f ollow-up advised.. IMPRESSION: No acute osseous abnormality cervical spine. Multiple nodules in the lungs suggestive of metastatic lesions. Clinical correlation and further eval uation is advised Reviewed, dictated and finalized at location A. IMPRESSION: No facial fracture. CT facial & cervical spine wo Ordering provider: Antonette Ortiz PA-C History: . fall . Comparison: None. Technique: CT of the cervical spine was performed without contrast. Sagittal a nd coronal reformatted images were also obtained and reviewed. Automated expos ure control and iterative reconstruction technique were employed. The dose-abelardo th product was 499.26 mGy-cm. FINDINGS: VERTEBRAE: No subluxation or acute fracture. The occipital condyles are intact. DISC SPACES: Degenerative disc disease seen at the level of C6-C7 and C7-T1. Mu ltilevel facet joint disease. PARASPINOUS SOFT TISSUES: Normal. Multiple nodules in both upper lobes of the l ungs which is suggestive of metastatic lesions. Enlarged mediastinal lymph node s are also noted. Clinical correlation and follow-up advised.. IMPRESSION: No acute osseous abnormality cervical spine. Multiple nodules in the lungs suggestive of metastatic lesions. Clinical correl ation and further evaluation is advised
--- NOTE | ~2024-07-16 | CT_ITS ---
CT brain wo con Ordering provider: Antonette Ortiz PA-C History: 79 years Female with . fall . Comparison: October 15, 2021 Technique: CT of the head without contrast. Radiation reduction technique utilized. :The dose-length product was 681 mGy-cm. FINDINGS: BRAIN PARENCHYMA AND CSF SPACES: Mild leukoaraiosis and diffuse cortical atrophy. Mild atheromatous d isease. No midline shift, mass effect or hemorrhage. The brain parenchyma and CSF spaces are otherwi se normal. Empty sella turcica. VISUALIZED PARANASAL SINUSES: Well aerated. MASTOIDS: Well aerated. BONES: The bones appear intact. SOFT TISSUES: Visualized nasopharynx is normal. Superficial soft tissues are normal. IMPRESSION: No acute intracranial findings. Reviewed, dictated and finalized at location A.
--- NOTE | ~2024-07-16 | CT_ITS ---
CT chest abdomen pelvis w con Ordering provider: Hermelindo Fischer MD History: 79 years Female with . Metastatic carcinoma . Comparison: January 24, 2022 Technique: CT chest with IV contrast. CT abdomen and pelvis CT abdomen and pelvis with IV and with or al contrast. Radiation reduction technique utilized.The dose-length product was 1048.31 mGy-cm 100 mL Omnipaque 35 0 was Given IV. FINDINGS: CHEST: --VISUALIZED THORACIC INLET: Normal. Left supraclavicular lymph node is noted measuring 1.5 --MEDIASTINUM: Aorta/coronary arteries: Mild atheromatous disease. Heart/other: The heart is not enlarged. Right paracardiac lymph nodes are noted measuring 4 cm. Lymph nodes: Enlarged lymph nodes are noted in the mediastinum. The largest measuring 1.9 cm. Other s maller lymph nodes are seen... Subcarinal and right hilar lymph nodes are also noted. Subcarinal lymp h node measures 2.1 cm. --LUNGS: Multiple metastatic lesions are seen in both lung involving all of the lungs with the larges t in the left upper lobe measuring 2.3 x 2.2 cm. IUD is present within the Sanchez possible minimal ob esity 6834. Empty sella IUD is in the preliminary Thank you area and a CD4 chest abdomen and pelvis for No infiltrates or effusions. No pneumothorax. --MUSCULOSKELETAL: Soft tissues: The superficial soft tissues are normal. Bones: Age appropriate degenerative changes of the spine. No suspicious bony lytic or sclerotic lesio ns. ABDOMEN/PELVIS: --MUSCULOSKELETAL: Bones: Age appropriate degenerative changes of the spine. No suspicious bony lytic or sclerotic lesio ns. Superficial soft tissues: The superficial soft tissues are normal. Para esophageal lymph nodes are noted on the right side. Slight thickening of the wall of the esophag us is also seen. --UPPER ABDOMINAL ORGANS: Liver: Multiple hypodense areas in the liver suggestive of a mass with the largest measures 7.4 cm Gallbladder: Normal. Cholelithiasis. Fat stranding with edema is seen around the gallbladder suggesti ve of cholecystitis. Spleen: Splenomegaly with multiple hypodensities suggestive of metastatic lesions. Stomach/duodenum: Normal. Pancreas: Normal. Adrenals: Normal. Kidneys: Normal. --PELVIC ORGANS: The bladder shows thickened wall. No bladder stones. --BOWEL AND MESENTERY: Colon: No evidence of diverticulitis.. Appendix is not demonstrated. Small Bowel: Normal. No obstruction. Peritoneum/mesentery: No free air. Free fluid is seen in the pelvis . Soft tissue density is seen in the right side of the pelvis which may be inflammatory mass or lymph n odes although less likely. Clinical correlation advised. Possibility of appendicular mass cannot be e xcluded although no fat stranding seen around this area. vascular mass is also seen in the left side of the pelvis with collateral vessels seen connecting the spleen vascularity to the mass which is mos t likely suggestive of pelvic congestive syndrome and portal hypertension. --RETROPERITONEUM: Mild atheromatous disease of the abdominal aorta. Retroperitoneal lymphadenopath y is seen with the largest seen posterior to the IVC measuring 4.3 x 2.3 cm. Diogenes hepatis lymph node s are also noted with the largest measures 3.3 x 2.5 cm. IMPRESSION: CHEST: 1. Mediastinal lymphadenopathy. 2. Multiple metastatic lesions of the lungs. 3. Left supraclavicular lymph node enlargement. 4. Right paracardiac lymph nodes are noted. ABDOMEN/PELVIS: 1. Multiple liver masses. 2. Splenomegaly with multiple metastatic lesions. 3. Cholelithiasis with highly suggestive cholecystitis. 4. 9 nopara esophageal , diogenes hepatis, and retroperitoneal areas 5. Vascular mass in the left side of the pelvis suggestive of pelvic congestion syndrome with promin ent left ovarian vein and also connected to the portal vein in the splenic hilum suggestive of portal hypert
--- NOTE | ~2024-07-16 | XR_ITS ---
XR chest 2V Ordering provider: Antonette Ortiz PA-C History: 79 years Female with . fall . Comparison: None. FINDINGS: MEDIASTINUM: The cardiac silhouette is not enlarged. LUNGS: No infiltrates, effusions or pneumothorax. Highly suggestive of nodule in the left upper lobe is noted which measures 1.[address] evaluation is a dvised. OTHER: No free air under the diaphragm. IMPRESSION: No acute cardiopulmonary pathology. Highly suggestive nodule in the left upper lobe. CT evaluation is advised. Reviewed, dictated and finalized at location A.
--- NOTE | ~2024-07-16 | CT_ITS ---
CT thoracic lumbar wo con Ordering provider: Antonette Ortiz PA-C History: . fall . Comparison: None. Technique: CT thoracic and lumbar spine without contrast. Automated exposure control and iterative r econstruction technique were employed. The dose-length product was 1507.30 mGy-cm. FINDINGS: VERTEBRAE: Normal height and alignment. No subluxation or visible acute fracture. Degenerative change s of the spine. DISC SPACES: Multilevel narrowing of the disc spaces more prominent at the level of C7-T1, T11-T12, L 3-L4 and T12-L1. Bilateral sacroiliitis. PARASPINOUS SOFT TISSUES: Multiple nodules in both lungs suggestive of metastatic lesions. Clinical c orrelation and follow-up advised. Lymphadenopathy is seen in the mediastinum. Retroperitoneal lymphad enopathy is also noted. Hypodensity in the spleen is also seen most likely metastatic. Left iliac lym phadenopathy is also noted. Atherosclerotic changes of the aorta. IMPRESSION: No acute osseous abnormality of the thoracic spine. Multiple metastatic lesions in the lungs. Mediastinal, retroperitoneal and left iliac lymphadenopathy. Hypodensity in the spleen. Reviewed, dictated and finalized at location A.
--- NOTE | ~2024-07-16 | US_ITS ---
EXAMINATION: US biopsy liver DATE: 07/21/2024 10:50 INDICATION: Liver mass. TECHNIQUE: The procedure including the risks, benefits, and alternatives was discussed with the patie nt. Risks discussed included bleeding and infection. The patient understood the risks and agreed to p roceed. The skin overlying the right hepatic lobe was prepped and draped in usual sterile fashion. A nesthetic was administered with 1% lidocaine subcutaneously. An 18 gauge core biopsy needle was then used to obtain 3 core biopsy specimens under continuous sonographic guidance. The entry site was luanne aned and dressed. There were no immediate complications. FINDINGS: Ultrasound images demonstrate the needle in an ill-defined hypoechoic mass in right hepatic lobe. IMPRESSION: 1. Ultrasound-guided core needle biopsy of a mass in right hepatic lobe. Reviewed, dictated and finalized at location A.
[2024-07-16 15:16] VITALS: BP 121/101; PULSE 72; RESP 15; TEMP 36.9; O2SAT 99
--- NOTE | 2024-07-16 17:24 | ECG_ITS ---
Test Date: 2024-07-16 23:10:06 Measurements Intervals [place] Rate: 76 P: 36 HI: 199 QRS: -3 QRSD: 68 T: 13 QT: 398 QTc: 450 Interpretive Statements SINUS RHYTHM WITH OCCASIONAL SUPRAVENTRICULAR PREMATURE COMPLEXES VOLTAGE CRITERIA FOR LVH INFERIOR INFARCT, AGE INDETERMINATE BORDERLINE ST-T WAVE ABNORMALITY- ANTEROLATERAL LEADS BASELINE ARTIFACT- I, II, III, AVR, AVL, AVF, V3 ABNORMAL ECG No previous ECG available for comparison Electronically Signed On 07-17-2024 06:56:34 CDT by Draiel Wren D.O.
--- NOTE | 2024-07-16 17:27 | ED.FALL ---
HPI - Fall General Chief Complaint: Fall <Antonette Ortiz PA-C - Last Filed: 07/19/24 14:36> Stated Complaint: fall yesterday <Antonette Ortiz PA-C - Last Filed: 07/19/24 14:36> Time Seen by Provider: 07/16/24 17:28 <Antonette Ortiz PA-C - Last Filed: 07/19/24 14:36> Focused HPI: This is a 79 year old female that presents to the ER after a fall with head injury. Patient's daughter reports she went to pick her up today to take her to an outpatient appointment. She noted a bruise on her forehead. Her mother told her she had fallen in the middle of the night. She has history of MS. Has had quite a few falls recently. Reports headache, neck pain and back pain. Reports contusion to her right shoulder. Denies vomiting, focal numbness or weakness. GENERAL: Elderly, well-nourished, and in no acute distress. HEAD: Normocephalic, atraumatic. CHEST: Clear to auscultation. ?No respiratory distress. HEART: Regular rate and rhythm.? NEURO: ?Alert and oriented x3. Patient screened in triage and initial orders placed.? ?Additional care and disposition to be based upon?diagnostic testing and treatment. <Antonette Ortiz PA-C - Last Filed: 07/19/24 14:36> History of Present Illness HPI Narrative: patient 79-year-old female presents emergency department chief of head injury. The patient reports she has had multiple falls reports she has history of MS a reports over the last several weeks she has fallen about 7 times patient reports that she is unsteady and has had to start using a walker the patient states she saw her psychiatrist today who recommended that she come to the emergency department as she had some bruising on her face. <Reji Jensen MD - Last Filed: 07/16/24 23:56> Related Data Home Medications: Home Medications Medication Instructions Recorded Confirmed donepezil 10 mg tablet 10 mg PO QHS 08/13/22 07/17/24 citalopram 40 mg tablet 40 mg PO HS 07/17/24 07/17/24 gabapentin 100 mg capsule 100 mg PO DAILY 07/17/24 07/17/24 gabapentin 600 mg tablet 300 mg PO HS 07/17/24 07/17/24 memantine 10 mg tablet 10 mg PO HS 07/17/24 07/17/24 metformin 500 mg tablet,extended 500 mg PO HS 07/17/24 07/17/24 release 24 hr potassium chloride 20 mEq 20 meq PO HS 07/17/24 07/17/24 tablet,extended release trazodone 100 mg tablet 100 mg PO HS 07/17/24 07/17/24 loperamide 2 mg capsule 2 mg PO PRN PRN Diarrhea 07/18/24 07/18/24 <Antonette Ortiz PA-C - Last Filed: 07/19/24 14:36> Allergies/Adverse Reactions: Allergies Allergy/AdvReac Type Severity Reaction Status Date / Time tomato Allergy Severe Mouth sores Verified 07/16/24 15:21 [place] And Derivatives Allergy Intermediate Mouth sores Verified 07/16/24 15:21 strawberry Allergy Mild Unknown Verified 07/16/24 15:21 Penicillins Allergy Unknown Unknown Verified 07/16/24 15:21 Sulfa (Sulfonamide Allergy Unknown Unknown Verified 07/16/24 15:21 Antibiotics) <Antonette Ortiz PA-C - Last Filed: 07/19/24 14:36> Review of Systems Review of Systems: A 10 system review of systems was completed on the patient and is negative except for what is stated in the HPI. Nursing and ancillary documentation was reviewed. <Reji Jensen MD - Last Filed: 07/16/24 23:56> [facility] Past Medical History Medical History: Medical History Multiple sclerosis Type 2 diabetes mellitus without complications <Antonette Ortiz PA-C - Last Filed: 07/19/24 14:36> Surgical History Surgical History: Surgical History H/O cataract removal with insertion of prosthetic lens <Antonette Ortiz PA-C - Last Filed: 07/19/24 14:36> Family History Family History: Family History Sibling Hypertension Family history of malignant neoplasm of cervix Father Decea
[2024-07-16 17:47] LABS: Basophils Absolute Auto 0.1 K/mm3 (0.0-0.1); Basophils Percent Auto 0.7 % (0.2-1.2); Eosinophils Absolute Auto 0.1 K/mm3 (0-0.3); Eosinophils Percent Auto 1.9 % (0-4.4); Hematocrit 35.9 % (37.0-47.0); Hemoglobin 11.7 g/dL (12.0-15.0); Immature Granulocyte Absolute 0.03 K/mm3 (0.00-0.031); Immature Granulocyte Percent A 0.4 % (0-0.5); Lymphocytes Absolute Auto 0.84 K/mm3 (0.9-3.2); Lymphocytes Percent Auto 11.5 % (18.3-44.2); Mean Corpuscular HGB Conc 32.6 g/dl (32-36); Mean Corpuscular Hemoglobin 29.3 pg (26-34); Mean Platelet Volume 9.9 fl (7.4-10.4); Monocytes Absolute Auto 0.6 K/mm3 (0.1-0.6); Monocytes Percent Auto 8.6 % (2.6-8.5); Neutrophils Absolute Auto 5.6 K/mm3 (1.3-6.7); Neutrophils Percent Auto 76.9 % (45.5-73.1); Platelet Count Result 134 k/mm3 (150-375); Red Blood Count 3.99 M/mm3 (4.2-5.4); Red Cell Distribution Width 14.5 % (11.5-14.5); White Blood Count 7.3 K/mm3 (4.5-10.0)
[2024-07-16 17:57] LABS: Alanine Aminotransferase 13 U/L (6-35); Albumin Level 3.7 g/dL (3.5-5.1); Alkaline Phosphatase 123 U/L (38-126); Anion Gap 9 mmol/L (4-12); Aspartate Amino Transferase 30 U/L (14-36); Bilirubin,Total 1.3 mg/dL (0.2-1.3); Blood Urea Nitrogen 13 mg/dL (7-17); Calcium 9.7 mg/dL (8.4-10.2); Carbon Dioxide 29 mmol/L (22-30); Chloride 94 mmol/L (98-107); Estimated CRCL calculation 47 ml/min; Estimated Glomerular Filt Rate > 60; Glucose 161 mg/dL (65-110); INR 1.3; Potassium 4.2 mmol/L (3.4-5.0); Prothrombin Time 16.8 Seconds (11.1-14.7); Sodium 132 mmol/L (137-145)
[2024-07-16 17:58] LABS: Partial Thromboplastin Time 32.4 Seconds (22.3-36.8)
[2024-07-17 00:45] VITALS: BP 116/72; PULSE 78; RESP 15; O2SAT 100
--- NOTE | 2024-07-17 01:08 | ADMGEN ---
This patient, Duong Haddad, was admitted to Medical Room 248-. Patient/family oriented to hospital policies and general routines including ID bracelet, bed and alarms, visiting hours, pain management, procedures, bathroom and other care routines, personal items, smoking policy, room service/diet, and visiting hours. Information on how to activate the Rapid Response Team has been discussed. Patient/Family are encouraged to report perceived risks to care and to ask questions if they do not understand what they are told or what they should do.
[2024-07-17 01:14] VITALS: BMI 32.4
[2024-07-17 01:15] VITALS: BP 143/77; PULSE 79; RESP 20; TEMP 37; O2SAT 100
[2024-07-17 03:46] VITALS: BP 147/63; PULSE 89; RESP 20; TEMP 36; O2SAT 98
[2024-07-17 04:59] LABS: Add Urine Microscopic? YES; Appearance Urine Cloudy (Clear); Bacteria Urine 4+ /hpf; Bilirubin Urine Negative (Negative); Blood Urine Negative (Negative); Color Urine Yellow (Yellow); Glucose Urine UA Negative (Negative); Ketones Urine Trace mg/dL (Negative); Leukocyte Esterase Ur 2+ LEU/UL (Negative); Nitrate Urine Positive (Negative); Non Pathogenic Casts 0-2; Protein Urine Negative (Negative); RBC Urine 0-2 /hpf (0-2); Specific Grav Ur 1.011 (1.001-1.035); Squamous Epithelial Cell Urine Occasional /hpf (Few); WBC Urine 51-100 /hpf (0-3)
--- NOTE | 2024-07-17 07:48 | PM.IMHP ---
H&P: HPI History of Present Illness Date/Time: 07/17/24 07:48 Chief Complaint: fall Narrative: 79 years old lady with history of dementia, hypertension, hyperlipidemia, iron deficient anemia multiple sclerosis, brought to ED because of fall. patient had multiple falls recently. patient fell last night Patient tripped and lost balance, fell on the from high.Patient daughter found her forehead bruises, and she to her mother to the the office visit Patient went to office visit today. patient had neck pain, back pain, right shoulder pain. patient denies focal weakness, numbness, nausea vomiting diarrhea ER or chills patient was sent to ED for evaluation treatment. upon arrival to ED, patient blood pressure stable, afebrile, labs showed mild anemia hemoglobin 11.7, Chem shows hyponatremia sodium 132, UA shows pyuria Review of Systems Review of Systems: ROS negative except above PMFSH Past Medical History Medical History Multiple sclerosis Type 2 diabetes mellitus without complications Surgical History Surgical History H/O cataract removal with insertion of prosthetic lens Family History Family History Sibling Hypertension Family history of malignant neoplasm of cervix Father Patient's father is Social History Social History Smoking packs per day: 1 Smoking cigarettes per day: 20.0 Years smoked: 30 Smoking pack-years: 30.00 Smoking status: Former smoker Tobacco type: cigarettes Second hand tobacco smoke exposure: Yes () Smoking end date: 11/04/92 Alcohol intake: current Drinks per week: 2 Substance use: never Do You Feel Safe in your Home?: Yes Lack of Transportation: No Lack of Food: Never True Current Housing: I Have Housing Concerned About Future Housing: No Difficulty Paying Gas/Electric Bills: No Difficulty Paying for Meds: No Currently Unemployed: No Education: High School Diploma/GED Difficulty w/ Childcare or Family Care: No Gender identity (if verbalized by the patient): Female Spiritual care concerns: No Meds Home Medications and Allergies Home Medications Medication Instructions Recorded Confirmed Type donepezil 10 mg tablet 10 mg PO QHS 08/13/22 07/17/24 History lisinopril 20 mg tablet 20 mg PO DAILY #90 tabs 07/10/24 07/17/24 Rx citalopram 40 mg tablet 40 mg PO 07/17/24 07/17/24 History gabapentin 100 mg capsule 100 mg PO DAILY 07/17/24 07/17/24 History gabapentin 600 mg tablet 300 mg PO HS 07/17/24 07/17/24 History memantine 10 mg tablet 10 mg PO 07/17/24 07/17/24 History metformin 500 mg tablet,extended 500 mg PO HS 07/17/24 07/17/24 History release 24 hr potassium chloride 20 mEq 20 meq PO HS 07/17/24 07/17/24 History tablet,extended release trazodone 100 mg tablet 100 mg PO 07/17/24 07/17/24 History Allergies Allergy/AdvReac Type Severity Reaction Status Date / Time tomato Allergy Severe Mouth sores Verified 07/16/24 15:21 [place] And Derivatives Allergy Intermediate Mouth sores Verified 07/16/24 15:21 strawberry Allergy Mild Unknown Verified 07/16/24 15:21 Penicillins Allergy Unknown Unknown Verified 07/16/24 15:21 Sulfa (Sulfonamide Allergy Unknown Unknown Verified 07/16/24 15:21 Antibiotics) Vital Signs Vital Signs - 24 hr 07/16/24 15:16 07/17/24 00:45 07/17/24 01:15 Temperature 98.5 F 98.6 F Pulse Rate 72 78 79 Respiratory Rate 15 15 20 Blood Pressure 121/101 H 116/72 143/77 H Pulse Oximetry 99 100 100 Oxygen Delivery Room Air 07/17/24 03:46 Temperature 96.8 F L Pulse Rate 89 Respiratory Rate 20 Blood Pressure 147/63 H Pulse Oximetry 98 Oxygen Delivery Exam Narrative: GENERAL: Pleasant, in no acute di
[2024-07-17] MEDS: GABAPENTIN 100 MG CAPSULE PO (09:41)
[2024-07-17] MEDS: SODIUM CHLORIDE 0.9% IV 1,000 ML 75 ML IV CONT (09:42)
[2024-07-17 11:12] VITALS: BMI 32.4
[2024-07-17 13:53] VITALS: BP 161/68; PULSE 73; RESP 16; O2SAT 97
--- NOTE | 2024-07-17 17:00 | PDONCCN ---
HPI - Date of Consult Date/Time: 07/17/24 17:00 Requesting Physician: Clay Holden MD Primary Care Provider: Shayne Tolentino DO - Consult Narrative Reason for consult: Lung metastasis Narrative: Duong Haddad is a 79 year old female without any previous history of malignancy and history of dementia, hypertension and hyperlipidemia along with multiple sclerosis came into the ER status post fall with bruising in face injury. She has lost 30 lb weight in last 6 months duration. She has a history of smoking but quit [address] thoracolumbar spine showed multiple lung metastasis with mediastinal, retroperitoneal and left iliac lymphadenopathy with hypodensity in the spleen. There was no bone abnormality in the spine. She denies any new lung sounds are lymphadenopathy. Denies any breast masses. Denies any melena hematochezia. Denies any diarrhea and constipation. No other new complaints. Review of Systems - Review of Systems All systems reviewed & are unremarkable except as noted in HPI and [facility] Medical History: Medical History (Last Reviewed 07/16/24 @ 23:12 by Reji Jensen MD) Multiple sclerosis Type 2 diabetes mellitus without complications Surgical History: Surgical History (Last Reviewed 07/16/24 @ 23:12 by Reji Jensen MD) H/O cataract removal with insertion of prosthetic lens Family History: Family History (Last Reviewed 07/17/24 @ 03:11 by Gretta Ortiz RN) Sibling Hypertension Family history of malignant neoplasm of cervix Father Patient's father is - Social History Social History: Social History (Last Reviewed 07/16/24 @ 23:12 by Reji Jensen MD) Gender Identity: Gender identity (if verbalized by the patient): Female Alcohol Use: Alcohol intake: current Drinks per week: 2 Substance Use: Substance use: never Others: Spiritual care concerns: No Smoking Status: Smoking status: Former smoker Tobacco type: cigarettes Second hand tobacco smoke exposure: Yes Second hand tobacco smoke exposure comment: Smoking end date: 11/04/92 Smoking Pack-years: Smoking packs per day: 1 Smoking cigarettes per day: 20.0 Years smoked: 30 Smoking pack-years: 30.00 Social Determinants of Health: Do You Feel Safe in your Home?: Yes Has the Lack of Transportation Kept You From Medical Appointments or From Getting Medications?: No Within the Past 12 Months, Were You Worried Whether Your Food Would Run Out Before You Got Money to Buy More?: Never True What is Your Housing Situation Today?: I Have Housing Are You Worried That in the Next 2 Months, You May Not Have Your Own Housing to Live In?: No Do You Have Trouble Paying Your Heating Or Electricity Bill?: No Do You Have Trouble Paying For Medicines?: No Are You Currently Unemployed and Looking for Work?: No Highest Level of Education Completed: High School Diploma/GED Do You Have Trouble With Childcare or the Care of a Family Member?: No Exam - Vital Signs Vital Signs - 24 hr 07/17/24 00:45 07/17/24 01:15 07/17/24 03:46 Temperature 37.0 C 36.0 C L Pulse Rate 78 79 89 Respiratory Rate 15 20 20 Blood Pressure 116/72 143/77 H 147/63 H Pulse Oximetry 100 100 98 Oxygen Delivery 07/17/24 08:00 07/17/24 13:53 07/17/24 15:08 Temperature Pulse Rate 73 Respiratory Rate 16 Blood Pressure 161/68 H Pulse Oximetry 97 Oxygen Delivery Room Air Room Air - Exam HEENT: EOMI, PERRLA, mucous membranes moist and pink Neck: supple Lungs: clear to auscultation, normal air movement Heart: no murmurs, gallops, or rubs, regular rhythm, regular rate Abdomen: abdomen soft, non-distended, normal bowel sounds Extremities: normal pulses Integumentary: no abnormalities Neurological: normal speech Psychological: mental status NL, mood NL - Lab Resul
[2024-07-17 19:58] VITALS: BP 148/73; PULSE 84; RESP 20; TEMP 36.6; O2SAT 97
[2024-07-17] MEDS: CITALOPRAM HYDROBROMIDE 20 MG TABLET 40 MG PO (20:23)
[2024-07-17] MEDS: traZODone HCL 50 MG TABLET 100 MG PO (20:24)
[2024-07-17] MEDS: GABAPENTIN 300 MG CAPSULE PO (20:24)
[2024-07-17] MEDS: MEMANTINE 10 MG TABLET PO (20:24)
[2024-07-17] MEDS: DONEPEZIL HCL 10 MG TABLET PO (20:24)
[2024-07-17] MEDS: lisinopriL 20 MG TABLET PO (20:30)
[2024-07-18 04:01] VITALS: BP 164/59; PULSE 76; RESP 20; TEMP 36.5; O2SAT 95
--- NOTE | 2024-07-18 07:55 | PM.IMPN ---
Progress Note: A&P Assessment and Plan (1) Frequent falls: Code(s): R29.6 - Repeated falls Status: Acute (2) Acute UTI: Code(s): N39.0 - Urinary tract infection, site not specified Status: Acute (3) Physical deconditioning: Code(s): R53.81 - Other malaise Status: Acute (4) Hyponatremia: Code(s): E87.1 - Hypo-osmolality and hyponatremia Status: Acute Plan frequent falls due to physical deconditioning, patient has multiple comorbidities including dementia. worsening physical condition possible related to UTI and poor intake CT head and neck showed no acute intracranial issues, fractures. Surgical lumbar spine of CT showed no fractures patient does not have focal weakness, numbness, headache Neuro check Four precaution Consult PT OT aged or disabled carer for evaluation and assisting placement orthostatic hypertension supine 155/72, sitting 132/60 provide compression socks and gentle IV fluid UTI UA shows pyuria possible related to physical deconditioning and poor intake Start ceftriaxone 1 g IV daily follow-up urine culture essential hypertension Continue lisinopril 20 mg daily p.o. optimize medication for better blood pressure control dementia Patient is on memantine 10 mg b.i.d. p.o. metastatic lesions in the lungs Multiple metastatic lesions in the lungs. Mediastinal, retroperitoneal and left iliac lymphadenopathy. Hypodensity in the spleen possible malignancy, unknown sources Consult heme oncologist for evaluation treatment appreciate heme oncologist consultation, heme oncologist plans biopsy of the lesion and PET scan outpatient hyponatremia Likely secondary to dehydration started Gentle IV fluid normal saline 75 mL/hour no sign of overlaod, dc NS today Chronic anemia No obvious bleeding Follow-up CBC patient may stay more than 2 midnights in the hospital, patient may benefit from placement acute rehab Subjective Date/time seen: 07/18/24 07:55 Interval history: I saw and examined the patient today, patient was able to ambulate with walker, exercise tolerance increase. Patient denies chest pain abdomen pain, nausea vomiting lightheadedness Exam Narrative: GENERAL: Pleasant, in no acute distress. Well-nourished. - EYES: EOMI. forehead bruises - HENT: Moist mucous membranes. right frontal skin bruises - LUNGS: Clear to auscultation bilaterally, no wheezing, rhonchi, or rales. - CARDIOVASCULAR: Regular rate and rhythm. No murmur. No JVD. - ABDOMEN: Soft, non-tender and non-distended. No palpable masses. - EXTREMITIES: No edema. Peripheral pulses 2+. Non-tender. - NEUROLOGIC: No focal neurological deficits. CN II-XII grossly intact. general weakness - PSYCHIATRIC: Awake, Alert and oriented x 3. Appropriate mood and affect. - SKIN: No rashes or lesions. Warm. - LYMPH: No cervical lymphadenopathy. Objective Data Vital Signs Vital Signs: Vital Signs - 24 hr 07/17/24 08:00 07/17/24 13:53 07/17/24 15:08 Temperature Pulse Rate 73 Respiratory Rate 16 Blood Pressure 161/68 H Pulse Oximetry 97 Oxygen Delivery Room Air Room Air 07/17/24 19:58 07/17/24 20:00 07/18/24 04:01 Temperature 97.8 F 97.7 F Pulse Rate 84 76 Respiratory Rate 20 20 Blood Pressure 148/73 H 164/59 H Pulse Oximetry 97 95 Oxygen Delivery Room Air Intake/Output Intake/Output: Intake & Output 07/15/24 07/16/24 07/17/24 07/18/24 23:59 23:59 23:59 23:59 Intake Total 1000 240 Output Total 2 200 Balance 998 40 Meds/Results Medications: Active Medications Generic Name Dose Route Start Last Admin Trade Name Freq PRN Reason Stop Dose Admin Acetaminophen 650 mg 07/16/24 23:49 Acetaminophen 325 Mg Tablet PO Q4H PRN Mild Pain (1-3) or Fever Citalopram Hydrobromide 40 mg 07/17/24 21:00 07/17/24 20:23 Citalopram Hydrobromide 20 Mg Tablet PO 40 mg HS [facility] Administra
[2024-07-18] MEDS: GABAPENTIN 100 MG CAPSULE PO (09:04)
[2024-07-18] MEDS: SODIUM CHLORIDE 0.9% IV 1,000 ML 75 ML IV CONT (09:05)
[2024-07-18 14:00] VITALS: BP 157/60; PULSE 79; RESP 12; TEMP 36.4; O2SAT 100
[2024-07-18] MEDS: LOPERAMIDE HCL 2 MG CAPSULE PO ×2 (15:34→16:33)
[2024-07-18] MEDS: ACETAMINOPHEN 325 MG TABLET 650 MG PO (16:28)
[2024-07-18 19:44] VITALS: BP 149/60; PULSE 74; RESP 18; TEMP 36.8; O2SAT 96
[2024-07-18 20:00] VITALS: PULSE 77; RESP 20; O2SAT 97
[2024-07-18] MEDS: traZODone HCL 50 MG TABLET 100 MG PO (21:30)
[2024-07-18] MEDS: CITALOPRAM HYDROBROMIDE 20 MG TABLET 40 MG PO (21:30)
[2024-07-18] MEDS: DONEPEZIL HCL 10 MG TABLET PO (21:31)
[2024-07-18] MEDS: MEMANTINE 10 MG TABLET PO (21:31)
[2024-07-18] MEDS: lisinopriL 20 MG TABLET PO (21:31)
[2024-07-18] MEDS: GABAPENTIN 300 MG CAPSULE PO (21:31)
[2024-07-18 21:54] VITALS: BP 140/49; PULSE 77; RESP 20; TEMP 36.8; O2SAT 97
[2024-07-19 04:33] VITALS: BP 143/54; PULSE 76; RESP 20; TEMP 37.2; O2SAT 97
--- NOTE | 2024-07-19 08:05 | PM.IMPN ---
Progress Note: A&P Assessment and Plan (1) Frequent falls: Code(s): R29.6 - Repeated falls Status: Acute Assessment and Plan: -history of multiple falls -secondary to physical deconditioning, and dementia worsening physical condition suspect related to UTI poor intake -continue fall precautions -continue PT/OT eval and treat may consider rehab/24 assisted living (2) Acute UTI: Code(s): N39.0 - Urinary tract infection, site not specified Status: Acute Assessment and Plan: -UA shows pyuria Continue ceftriaxone 1 g IV daily urine culture pending (3) Physical deconditioning: Code(s): R53.81 - Other malaise Status: Acute (4) Hyponatremia: Code(s): E87.1 - Hypo-osmolality and hyponatremia Status: Acute Assessment and Plan: Hyponatremia, likely secondary to dehydration -continue IV fluid NS 75 ML/Hr -monitor BMP daily (5) Dementia: Code(s): F03.90 - Unspecified dementia, unspecified severity, without behavioral disturbance, psychotic disturbance, mood disturbance, and anxiety Status: Acute Assessment and Plan: Without behavioral disturbances -continue to memantine 10mg b.i.d. p.o. (6) Multiple lung nodules: Code(s): R91.8 - Other nonspecific abnormal finding of lung field Status: Acute Assessment and Plan: -metastatic lesions in the long -mediastinal, retroperitoneal and left iliac lymphadenopathy -consulted seen/oncologist eval and treat appreciate recommendation and plan (7) Type 2 diabetes mellitus without complications: Qualifiers: Diabetes mellitus manager long term care insulin use: with alf use Qualified Code(s): E11.9 - Type 2 diabetes mellitus without complications; Z79.4 - exterminator termite (current) use of insulin Code(s): E11.9 - Type 2 diabetes mellitus without complications Status: Acute Assessment and Plan: Last known A1c 7.3 -recheck A1c -hold home medication metformin -glucose bedside management Plan Continue home medications: VTE Prophylaxis: SCDs( frequent falls) DIET: Anticipated hospital stay: > 2 days Code Status: DNR Time Spent With Patient Time with patient: 25 - 35 minutes Subjective Date/time seen: 07/19/24 08:05 Interval history: Patient seen this morning, she is resting in bed easily arousable, in no acute distress. Reports overnight events of not being able to sleep, she denies any chest pain nausea vomiting fever chills. Review of Systems Review of Systems: ROS negative except above Exam Narrative: GENERAL: Pleasant, in no acute distress. Lying in bed A&O x3 - EYES: EOMI. forehead bruises - HENT: Moist mucous membranes. right frontal skin bruises - LUNGS: Clear to auscultation bilaterally, no wheezing, rhonchi, or rales. - CARDIOVASCULAR: Regular rate and rhythm. No murmur. No JVD. - ABDOMEN: Soft, non-tender and non-distended. No palpable masses. - EXTREMITIES: No edema. Peripheral pulses 2+. Non-tender. - NEUROLOGIC: No focal neurological deficits. CN II-XII grossly intact. general weakness - PSYCHIATRIC: Awake, Alert and oriented x 3. Appropriate mood and affect. - SKIN: No rashes or lesions. Warm. - LYMPH: No cervical lymphadenopathy. Objective Data Vital Signs Vital Signs: Vital Signs - 24 hr 07/18/24 11:19 07/18/24 14:00 07/18/24 19:44 Temperature 97.5 F L 98.2 F Pulse Rate 79 74 Respiratory Rate 12 18 Blood Pressure 157/60 H 149/60 H Pulse Oximetry 100 96 Oxygen Delivery Room Air 07/18/24 21:54 07/18/24 20:00 07/19/24 04:33 Temperature 98.3 F 98.9 F Pulse Rate 77 77 76 Respiratory Rate 20 20 20 Blood Pressure 140/49 L 143/54 H Pulse Oximetry 97 97 97 Oxygen Delivery Room Air Intake/Output Intake/Output: Intake & Output 07/16/24 07/17/24 07/18/24 07/19/24 23:59 23:59 23:59 23:59 Intake Total 1000 2490 500 Output Total 2 401 550 Balance 998 2089 -50 Meds/Resu
[2024-07-19 10:28] VITALS: O2SAT 98
[2024-07-19] MEDS: GABAPENTIN 100 MG CAPSULE PO (10:28)
[2024-07-19] MEDS: SODIUM CHLORIDE 0.9% IV 1,000 ML 75 ML IV CONT ×2 (13:17→20:47)
[2024-07-19 13:42] LABS: Glucose Point of Care 311 mg/dl (65-105)
[2024-07-19 14:00] VITALS: BP 151/58; PULSE 70; RESP 16; TEMP 36.7; O2SAT 98
[2024-07-19 15:17] LABS: Glucose Point of Care 262 mg/dl (65-105)
[2024-07-19] MEDS: INSULIN ASPART (*BKC) 100 UNITS/ML SUB-Q (15:21)
[2024-07-19 15:24] VITALS: O2SAT 97
[2024-07-19 16:59] LABS: Glucose Point of Care 168 mg/dl (65-105)
[2024-07-19 20:00] VITALS: PULSE 72; RESP 18; O2SAT 99
[2024-07-19 20:45] LABS: Glucose Point of Care 231 mg/dl (65-105)
[2024-07-19] MEDS: ACETAMINOPHEN 325 MG TABLET 650 MG PO (20:46)
[2024-07-19] MEDS: lisinopriL 20 MG TABLET PO (20:47)
[2024-07-19] MEDS: MEMANTINE 10 MG TABLET PO (20:47)
[2024-07-19] MEDS: DONEPEZIL HCL 10 MG TABLET PO (20:47)
[2024-07-19] MEDS: traZODone HCL 50 MG TABLET 100 MG PO (20:47)
[2024-07-19] MEDS: CITALOPRAM HYDROBROMIDE 20 MG TABLET 40 MG PO (20:47)
[2024-07-19] MEDS: GABAPENTIN 300 MG CAPSULE PO (20:47)
[2024-07-19 21:49] VITALS: BP 180/67; PULSE 72; RESP 18; TEMP 36.6; O2SAT 99
[2024-07-20 04:55] VITALS: BP 130/50; PULSE 69; RESP 18; TEMP 36.6; O2SAT 97
[2024-07-20 04:59] VITALS: BP 130/50; PULSE 69; RESP 18; TEMP 36.6; O2SAT 97
[2024-07-20] MEDS: SODIUM CHLORIDE 0.9% IV 1,000 ML 75 ML IV CONT (05:50)
[2024-07-20 06:00] VITALS: BP 142/50; PULSE 69; RESP 18; TEMP 36.6; O2SAT 97
[2024-07-20 06:02] LABS: Glucose Point of Care 111 mg/dl (65-105)
[2024-07-20 06:11] LABS: Basophils Absolute Auto 0.1 K/mm3 (0.0-0.1); Basophils Percent Auto 1.1 % (0.2-1.2); Eosinophils Absolute Auto 0.2 K/mm3 (0-0.3); Eosinophils Percent Auto 3.6 % (0-4.4); Hematocrit 33.8 % (37.0-47.0); Immature Granulocyte Absolute 0.03 K/mm3 (0.00-0.031); Immature Granulocyte Percent A 0.5 % (0-0.5); Lymphocytes Absolute Auto 0.98 K/mm3 (0.9-3.2); Lymphocytes Percent Auto 14.7 % (18.3-44.2); Mean Corpuscular HGB Conc 32.5 g/dl (32-36); Mean Corpuscular Hemoglobin 29.3 pg (26-34); Mean Corpuscular Volume 89.9 fl (80-100); Mean Platelet Volume 9.7 fl (7.4-10.4); Monocytes Absolute Auto 0.6 K/mm3 (0.1-0.6); Monocytes Percent Auto 9.5 % (2.6-8.5); Neutrophils Absolute Auto 4.7 K/mm3 (1.3-6.7); Neutrophils Percent Auto 70.6 % (45.5-73.1); Platelet Count Result 130 k/mm3 (150-375); Red Blood Count 3.76 M/mm3 (4.2-5.4); Red Cell Distribution Width 14.4 % (11.5-14.5); White Blood Count 6.7 K/mm3 (4.5-10.0)
[2024-07-20 06:17] LABS: Hemoglobin A1C 7.5 % (<5.7)
[2024-07-20 06:24] LABS: Alanine Aminotransferase 13 U/L (6-35); Alkaline Phosphatase 104 U/L (38-126); Anion Gap 8 mmol/L (4-12); Aspartate Amino Transferase 29 U/L (14-36); Bilirubin,Total 0.8 mg/dL (0.2-1.3); Blood Urea Nitrogen 8 mg/dL (7-17); Calcium 8.7 mg/dL (8.4-10.2); Carbon Dioxide 24 mmol/L (22-30); Chloride 104 mmol/L (98-107); Estimated CRCL calculation 61 ml/min; Estimated Glomerular Filt Rate > 60; Glucose 107 mg/dL (65-110); Potassium 3.4 mmol/L (3.4-5.0); Sodium 136 mmol/L (137-145)
[2024-07-20 08:00] LABS: Glucose Point of Care 120 mg/dl (65-105)
[2024-07-20] MEDS: GABAPENTIN 100 MG CAPSULE PO (08:48)
--- NOTE | 2024-07-20 10:42 | PM.IMPN ---
Progress Note: A&P Assessment and Plan (1) Frequent falls: Code(s): R29.6 - Repeated falls Status: Acute Assessment and Plan: -history of multiple falls -secondary to physical deconditioning, and dementia worsening physical condition suspect related to UTI poor intake -continue fall precautions -continue PT/OT eval and treat may consider rehab/24 assisted living 07/20/24: Patient continues to work with Physical therapy Occupational therapy during this admission. She does however indicate that she will be returning home upon discharge. (2) Acute UTI: Code(s): N39.0 - Urinary tract infection, site not specified Status: Acute Assessment and Plan: -UA shows pyuria Continue ceftriaxone 1 g IV daily urine culture pending 07/20/24: Urine culture reported out today growth of E coli with benites sensitivity. Patient has received 4 doses ceftriaxone 1 g. IV antibiotics are discontinued today patient started on Levaquin 750 mg for 4 days. (3) Physical deconditioning: Code(s): R53.81 - Other malaise Status: Acute Assessment and Plan: 07/20/24: See 1. (4) Hyponatremia: Code(s): E87.1 - Hypo-osmolality and hyponatremia Status: Resolved Assessment and Plan: Hyponatremia, likely secondary to dehydration -continue IV fluid NS 75 ML/Hr -monitor BMP daily 07/20/24: Sodium level today is 136. This is resolved. Patient is tolerating p.o. intake well without any difficulty. Therefore IV fluids were stopped at this time. (5) Dementia: Code(s): F03.90 - Unspecified dementia, unspecified severity, without behavioral disturbance, psychotic disturbance, mood disturbance, and anxiety Status: Chronic Assessment and Plan: Without behavioral disturbances -continue to memantine 10mg b.i.d. p.o. 07/20/24: Continue Namenda. (6) Multiple lung nodules: Code(s): R91.8 - Other nonspecific abnormal finding of lung field Status: Acute Assessment and Plan: -metastatic lesions in the long -mediastinal, retroperitoneal and left iliac lymphadenopathy -consulted seen/oncologist eval and treat appreciate recommendation and plan 07/20/24: CT chest abdomen and pelvis was ordered and performed with results showing multiple areas of suspected metastasis in the lungs, liver, spleen, retroperitoneal region, and pelvis. Per oncology note the desired for biopsy is present and site to be determined based upon the results of the CT of the chest abdomen and pelvis. We are reaching out to Oncology today to discuss desire for biopsy Prior to discharge. (7) Type 2 diabetes mellitus without complications: Qualifiers: Diabetes mellitus rodent exterminator insulin use: with group home use Qualified Code(s): E11.9 - Type 2 diabetes mellitus without complications; Z79.4 - care home (current) use of insulin Code(s): E11.9 - Type 2 diabetes mellitus without complications Status: Acute Assessment and Plan: Last known A1c 7.3 on01/25 -recheck A1c -hold home medication metformin -glucose bedside management 07/20/24: Continue hypoglycemic protocol. A1c is 7.5. Continue sliding scale insulin. Accu-Chek a.c. and HS and as needed diabetic diet Time Spent With Patient Time with patient: 25 - 35 minutes Subjective Date/time seen: 07/20/24 0840 Interval history: This very pleasant 79-year-old female patient was examined at the bedside today interval since admission. Patient had sustained a fall at home abdomen wound in the emergency room it was found that she had urinary tract infection was started on Rocephin IV. Incidentally was also found the patient multiple lesions lungs. Metastatic as well as multiple retroperitoneal lymph nodes present. Dr. Fischer consulted for a: G in ordered CT of chest abdomen and pelvis that demonstrated in the chest mediastinal lymphadenopathy with multiple metastatic lesions in
[2024-07-20 11:59] LABS: Glucose Point of Care 157 mg/dl (65-105)
[2024-07-20] MEDS: levoFLOXacin 750 MG TABLET PO (12:06)
[2024-07-20 13:43] VITALS: BP 148/51; PULSE 65; RESP 17; TEMP 36.7; O2SAT 100
[2024-07-20 17:17] LABS: Glucose Point of Care 149 mg/dl (65-105)
[2024-07-20 20:00] VITALS: PULSE 64; RESP 18; O2SAT 98
[2024-07-20 20:27] VITALS: BP 143/52; PULSE 64; RESP 18; TEMP 37.1; O2SAT 98
[2024-07-20] MEDS: traZODone HCL 50 MG TABLET 100 MG PO (20:29)
[2024-07-20] MEDS: MEMANTINE 10 MG TABLET PO (20:29)
[2024-07-20] MEDS: GABAPENTIN 300 MG CAPSULE PO (20:30)
[2024-07-20] MEDS: CITALOPRAM HYDROBROMIDE 20 MG TABLET 40 MG PO (20:30)
[2024-07-20] MEDS: DONEPEZIL HCL 10 MG TABLET PO (20:30)
[2024-07-20] MEDS: ACETAMINOPHEN 325 MG TABLET 650 MG PO (20:30)
[2024-07-20] MEDS: lisinopriL 20 MG TABLET PO (20:30)
[2024-07-20 23:08] LABS: Glucose Point of Care 242 mg/dl (65-105)
[2024-07-21 05:19] VITALS: BP 140/60; PULSE 69; RESP 18; TEMP 36.7; O2SAT 98
[2024-07-21 05:57] LABS: Basophils Percent Auto 0.8 % (0.2-1.2); Eosinophils Absolute Auto 0.2 K/mm3 (0-0.3); Eosinophils Percent Auto 3.4 % (0-4.4); Hematocrit 31.6 % (37.0-47.0); Hemoglobin 10.5 g/dL (12.0-15.0); Immature Granulocyte Absolute 0.01 K/mm3 (0.00-0.031); Immature Granulocyte Percent A 0.2 % (0-0.5); Immature Platelet Fraction Pct 1.8 % (0.9-11.2); Lymphocytes Absolute Auto 0.66 K/mm3 (0.9-3.2); Lymphocytes Percent Auto 12.6 % (18.3-44.2); Mean Corpuscular HGB Conc 33.2 g/dl (32-36); Mean Corpuscular Hemoglobin 29.6 pg (26-34); Mean Platelet Volume 9.8 fl (7.4-10.4); Monocytes Absolute Auto 0.6 K/mm3 (0.1-0.6); Monocytes Percent Auto 11.5 % (2.6-8.5); Neutrophils Absolute Auto 3.7 K/mm3 (1.3-6.7); Neutrophils Percent Auto 71.5 % (45.5-73.1); Platelet Count Result 102 k/mm3 (150-375); Red Blood Count 3.55 M/mm3 (4.2-5.4); Red Cell Distribution Width 14.5 % (11.5-14.5); White Blood Count 5.2 K/mm3 (4.5-10.0)
[2024-07-21 06:05] LABS: INR 1.5
[2024-07-21 06:06] LABS: Partial Thromboplastin Time 34.1 Seconds (22.3-36.8)
[2024-07-21 06:13] LABS: Alanine Aminotransferase 13 U/L (6-35); Alkaline Phosphatase 97 U/L (38-126); Anion Gap 7 mmol/L (4-12); Aspartate Amino Transferase 29 U/L (14-36); Bilirubin,Total 0.8 mg/dL (0.2-1.3); Blood Urea Nitrogen 8 mg/dL (7-17); Calcium 8.9 mg/dL (8.4-10.2); Carbon Dioxide 27 mmol/L (22-30); Chloride 103 mmol/L (98-107); Estimated CRCL calculation 61 ml/min; Estimated Glomerular Filt Rate > 60; Glucose 119 mg/dL (65-110); Potassium 3.1 mmol/L (3.4-5.0); Sodium 137 mmol/L (137-145)
[2024-07-21 06:20] LABS: Glucose Point of Care 134 mg/dl (65-105)
[2024-07-21] MEDS: POTASSIUM CHLORIDE 20 MEQ ER TABLET 40 MEQ PO (06:40)
--- NOTE | 2024-07-21 06:47 | P.PNIM_ITS ---
Progress Note: A&P Assessment and Plan (1) Frequent falls: Code(s): R29.6 - Repeated falls Status: Acute Assessment and Plan: -history of multiple falls -secondary to physical deconditioning, and dementia worsening physical condition suspect related to UTI poor intake -continue fall precautions -continue PT/OT eval and treat may consider rehab/24 assisted living 07/20/24: * Patient continues to work with Physical therapy Occupational therapy during this admission. She does however indicate that she will be returning home upon discharge. 07/21/24: * No further safety concerns. * Continue PT/OT * Continue fall precautions. * Pt encouraged to call for help with ambulation. (2) Acute UTI: Code(s): N39.0 - Urinary tract infection, site not specified Status: Acute Assessment and Plan: -UA shows pyuria Continue ceftriaxone 1 g IV daily urine culture pending 07/20/24: * Urine culture reported out today growth of E coli with benites sensitivity. * Patient has received 4 doses ceftriaxone 1 g. IV antibiotics are discontinued today patient started on Levaquin 750 mg for 4 days. 07/21/24: * Continue po Levaquin. Last dose on 07/23/24. (3) Physical deconditioning: Code(s): R53.81 - Other malaise Status: Acute Assessment and Plan: 07/20/24: * See 1. (4) Hyponatremia: Code(s): E87.1 - Hypo-osmolality and hyponatremia Status: Resolved Assessment and Plan: Hyponatremia, likely secondary to dehydration -continue IV fluid NS 75 ML/Hr -monitor BMP daily 07/20/24: * Sodium level today is 136. This is resolved. * Patient is tolerating p.o. intake well without any difficulty. Therefore IV fluids were stopped at this time. (5) Dementia: Code(s): F03.90 - Unspecified dementia, unspecified severity, without behavioral disturbance, psychotic disturbance, mood disturbance, and anxiety Status: Chronic Assessment and Plan: Without behavioral disturbances -continue to memantine 10mg b.i.d. p.o. 07/20/24: * Continue Namenda. 07/21/24: * Pt alert and oriented x4 without any acute deficits of Neuro status. * Continue Namenda. (6) Multiple lung nodules: Code(s): R91.8 - Other nonspecific abnormal finding of lung field Status: Acute Assessment and Plan: -metastatic lesions in the long -mediastinal, retroperitoneal and left iliac lymphadenopathy -consulted seen/oncologist eval and treat appreciate recommendation and plan 07/20/24: * CT chest abdomen and pelvis was ordered and performed with results showing multiple areas of suspected metastasis in the lungs, liver, spleen, retroperitoneal region, and pelvis. * Per oncology note the desired for biopsy is present and site to be determined based upon the results of the CT of the chest abdomen and pelvis. * We are reaching out to Oncology today to discuss desire for biopsy Prior to discharge. 07/21/24: * Plan for biopsy of Liver today as there were also multiple masses there. * NPO for biopsy * Pre meds with ativan. (7) Type 2 diabetes mellitus without complications: Qualifiers: Diabetes mellitus continuous churn buttermaker insulin use: with group home use Qualified Code(s): E11.9 - Type 2 diabetes mellitus without complications; Z79.4 - halfway (current) use of insulin Code(s): E11.9 - Type 2 diabetes mellitus without complications Status: Acute Assessment and Plan: Last known A1c 7.3 on01/25 -recheck A1c -hold home medication me
--- NOTE | 2024-07-21 06:47 | PM.IMPN ---
Progress Note: A&P Assessment and Plan (1) Frequent falls: Code(s): R29.6 - Repeated falls Status: Acute Assessment and Plan: -history of multiple falls -secondary to physical deconditioning, and dementia worsening physical condition suspect related to UTI poor intake -continue fall precautions -continue PT/OT eval and treat may consider rehab/24 assisted living 07/20/24: Patient continues to work with Physical therapy Occupational therapy during this admission. She does however indicate that she will be returning home upon discharge. 07/21/24: No further safety concerns. Continue PT/OT Continue fall precautions. Pt encouraged to call for help with ambulation. (2) Acute UTI: Code(s): N39.0 - Urinary tract infection, site not specified Status: Acute Assessment and Plan: -UA shows pyuria Continue ceftriaxone 1 g IV daily urine culture pending 07/20/24: Urine culture reported out today growth of E coli with benites sensitivity. Patient has received 4 doses ceftriaxone 1 g. IV antibiotics are discontinued today patient started on Levaquin 750 mg for 4 days. 07/21/24: Continue po Levaquin. Last dose on 07/23/24. (3) Physical deconditioning: Code(s): R53.81 - Other malaise Status: Acute Assessment and Plan: 07/20/24: See 1. (4) Hyponatremia: Code(s): E87.1 - Hypo-osmolality and hyponatremia Status: Resolved Assessment and Plan: Hyponatremia, likely secondary to dehydration -continue IV fluid NS 75 ML/Hr -monitor BMP daily 07/20/24: Sodium level today is 136. This is resolved. Patient is tolerating p.o. intake well without any difficulty. Therefore IV fluids were stopped at this time. (5) Dementia: Code(s): F03.90 - Unspecified dementia, unspecified severity, without behavioral disturbance, psychotic disturbance, mood disturbance, and anxiety Status: Chronic Assessment and Plan: Without behavioral disturbances -continue to memantine 10mg b.i.d. p.o. 07/20/24: Continue Namenda. 07/21/24: Pt alert and oriented x4 without any acute deficits of Neuro status. Continue Namenda. (6) Multiple lung nodules: Code(s): R91.8 - Other nonspecific abnormal finding of lung field Status: Acute Assessment and Plan: -metastatic lesions in the long -mediastinal, retroperitoneal and left iliac lymphadenopathy -consulted seen/oncologist eval and treat appreciate recommendation and plan 07/20/24: CT chest abdomen and pelvis was ordered and performed with results showing multiple areas of suspected metastasis in the lungs, liver, spleen, retroperitoneal region, and pelvis. Per oncology note the desired for biopsy is present and site to be determined based upon the results of the CT of the chest abdomen and pelvis. We are reaching out to Oncology today to discuss desire for biopsy Prior to discharge. 07/21/24: Plan for biopsy of Liver today as there were also multiple masses there. NPO for biopsy Pre meds with ativan. (7) Type 2 diabetes mellitus without complications: Qualifiers: Diabetes mellitus buttermaker insulin use: with fdc use Qualified Code(s): E11.9 - Type 2 diabetes mellitus without complications; Z79.4 - longterm (current) use of insulin Code(s): E11.9 - Type 2 diabetes mellitus without complications Status: Acute Assessment and Plan: Last known A1c 7.3 on01/25 -recheck A1c -hold home medication metformin -glucose bedside management 07/20/24: Continue hypoglycemic protocol. A1c is 7.5. Continue sliding scale insulin. Accu-Chek a.c. and HS and as needed diabetic diet 07/21/24: Continue current regimen. Fasting glucose today 119. (8) Hypokalemia: Code(s): E87.6 - Hypokalemia Status: Acute Assessment and Plan: 07/21/24: Potassium this AM was 3.1. Single dose of 40 mEq ordered. Will recheck with AM l
[2024-07-21 08:33] LABS: Glucose Point of Care 128 mg/dl (65-105)
[2024-07-21] MEDS: LORazepam INJ (*CRX) 2 MG/ML VIAL IV PUSH (09:53)
[2024-07-21 11:26] LABS: Glucose Point of Care 133 mg/dl (65-105)
[2024-07-21 14:00] VITALS: BP 144/50; PULSE 66; RESP 14; TEMP 36.3; O2SAT 97
--- NOTE | 2024-07-21 14:58 | PC.NURSE ---
On 07/21/24, the student, [Dami Mcgrath], provided care and completed [facility] documentation on this patient. I have reviewed the student's documentation and agree with the findings.
[2024-07-21 17:00] LABS: Glucose Point of Care 118 mg/dl (65-105)
[2024-07-21 19:58] LABS: Glucose Point of Care 182 mg/dl (65-105)
[2024-07-21] MEDS: CITALOPRAM HYDROBROMIDE 20 MG TABLET 40 MG PO (20:12)
[2024-07-21] MEDS: traZODone HCL 50 MG TABLET 100 MG PO (20:12)
[2024-07-21] MEDS: MEMANTINE 10 MG TABLET PO (20:12)
[2024-07-21] MEDS: lisinopriL 20 MG TABLET PO (20:12)
[2024-07-21] MEDS: GABAPENTIN 300 MG CAPSULE PO (20:12)
[2024-07-21] MEDS: DONEPEZIL HCL 10 MG TABLET PO (20:13)
[2024-07-21 22:00] VITALS: BP 140/62; PULSE 70; RESP 16; TEMP 36.6; O2SAT 98
[2024-07-22 05:10] VITALS: BP 133/64; PULSE 77; RESP 18; TEMP 36.6; O2SAT 96
[2024-07-22 06:35] LABS: Basophils Percent Auto 0.5 % (0.2-1.2); Eosinophils Absolute Auto 0.2 K/mm3 (0-0.3); Eosinophils Percent Auto 3.8 % (0-4.4); Hematocrit 33.8 % (37.0-47.0); Hemoglobin 10.8 g/dL (12.0-15.0); Immature Granulocyte Absolute 0.02 K/mm3 (0.00-0.031); Immature Granulocyte Percent A 0.3 % (0-0.5); Lymphocytes Absolute Auto 0.68 K/mm3 (0.9-3.2); Lymphocytes Percent Auto 10.8 % (18.3-44.2); Mean Corpuscular Hemoglobin 28.6 pg (26-34); Mean Corpuscular Volume 89.7 fl (80-100); Mean Platelet Volume 9.9 fl (7.4-10.4); Monocytes Absolute Auto 0.6 K/mm3 (0.1-0.6); Monocytes Percent Auto 9.8 % (2.6-8.5); Neutrophils Absolute Auto 4.7 K/mm3 (1.3-6.7); Neutrophils Percent Auto 74.8 % (45.5-73.1); Platelet Count Result 116 k/mm3 (150-375); Red Blood Count 3.77 M/mm3 (4.2-5.4); Red Cell Distribution Width 14.7 % (11.5-14.5); White Blood Count 6.3 K/mm3 (4.5-10.0)
[2024-07-22 06:51] LABS: Alanine Aminotransferase 13 U/L (6-35); Albumin Level 3.2 g/dL (3.5-5.1); Alkaline Phosphatase 106 U/L (38-126); Anion Gap 6 mmol/L (4-12); Aspartate Amino Transferase 32 U/L (14-36); Bilirubin,Total 0.9 mg/dL (0.2-1.3); Blood Urea Nitrogen 9 mg/dL (7-17); Calcium 9.3 mg/dL (8.4-10.2); Carbon Dioxide 29 mmol/L (22-30); Chloride 101 mmol/L (98-107); Estimated CRCL calculation 53 ml/min; Estimated Glomerular Filt Rate > 60; Glucose 126 mg/dL (65-110); Potassium 3.5 mmol/L (3.4-5.0); Sodium 136 mmol/L (137-145)
--- NOTE | 2024-07-22 06:57 | P.DS_ITS ---
DS: Admitting Diagnosis Discharge Date 07/22/24 Admitting Diagnosis UTI Frequent Falls Metastatic lesions in lungs DS: Discharge Diagnosis Discharge Diagnosis (1) Frequent falls: Code(s): R29.6 - Repeated falls Status: Acute Assessment and Plan: -history of multiple falls -secondary to physical deconditioning, and dementia worsening physical condition suspect related to UTI poor intake -continue fall precautions -continue PT/OT eval and treat may consider rehab/ assisted living 07/20/24: * Patient continues to work with Physical therapy Occupational therapy during this admission. She does however indicate that she will be returning home upon discharge. 07/21/24: * No further safety concerns. * Continue PT/OT * Continue fall precautions. * Pt encouraged to call for help with ambulation. 07/22/24: * Discharge today to home. * Pt ensures that she will have help with family at home for safety. (2) Acute UTI: Code(s): N39.0 - Urinary tract infection, site not specified Status: Acute Assessment and Plan: -UA shows pyuria Continue ceftriaxone 1 g IV daily urine culture pending 07/20/24: * Urine culture reported out today growth of E coli with benites sensitivity. * Patient has received 4 doses ceftriaxone 1 g. IV antibiotics are discontinued today patient started on Levaquin 750 mg for 4 days. 07/21/24: * Continue po Levaquin. Last dose on 07/23/24. 07/22/24: * Urine culture grew out E.coli, sensitive to Levaquin. She has been taking PO. * Discharge with prescription for Levaquin 750 mg daily for one additional dose tomorrow. (3) Physical deconditioning: Code(s): R53.81 - Other malaise Status: Acute Assessment and Plan: 07/20/24: * See 1. (4) Hyponatremia: Code(s): E87.1 - Hypo-osmolality and hyponatremia Status: Resolved Assessment and Plan: Hyponatremia, likely secondary to dehydration -continue IV fluid NS 75 ML/Hr -monitor BMP daily 07/20/24: * Sodium level today is 136. This is resolved. * Patient is tolerating p.o. intake well without any difficulty. Therefore IV fluids were stopped at this time. (5) Dementia: Code(s): F03.90 - Unspecified dementia, unspecified severity, without behavioral disturbance, psychotic disturbance, mood disturbance, and anxiety Status: Chronic Assessment and Plan: Without behavioral disturbances -continue to memantine 10mg b.i.d. p.o. 07/20/24: * Continue Namenda. 07/21/24: * Pt alert and oriented x4 without any acute deficits of Neuro status. * Continue Namenda. 07/22/24: * Continue home meds upon discharge (6) Multiple lung nodules: Code(s): R91.8 - Other nonspecific abnormal finding of lung field Status: Acute Assessment and Plan: -metastatic lesions in the long -mediastinal, retroperitoneal and left iliac lymphadenopathy -consulted seen/oncologist eval and treat appreciate recommendation and plan 07/20/24: * CT chest abdomen and pelvis was ordered and performed with results showing multiple areas of suspected metastasis in the lungs, liver, spleen, retroperitoneal region, and pelvis. * Per oncology note the desired for biopsy is present and site to be determined based upon the results of the CT of the chest abdomen and pelvis. * We are reaching out to Oncology today to discuss desire for biopsy Prior to discharge. 07/21/24: * Plan for biopsy of Liver today as there were also multiple masses there.
--- NOTE | 2024-07-22 06:57 | PM.DS ---
DS: Admitting Diagnosis Discharge Date 07/22/24 Admitting Diagnosis UTI Frequent Falls Metastatic lesions in lungs DS: Discharge Diagnosis Discharge Diagnosis (1) Frequent falls: Code(s): R29.6 - Repeated falls Status: Acute Assessment and Plan: -history of multiple falls -secondary to physical deconditioning, and dementia worsening physical condition suspect related to UTI poor intake -continue fall precautions -continue PT/OT eval and treat may consider rehab/ assisted living 07/20/24: Patient continues to work with Physical therapy Occupational therapy during this admission. She does however indicate that she will be returning home upon discharge. 07/21/24: No further safety concerns. Continue PT/OT Continue fall precautions. Pt encouraged to call for help with ambulation. 07/22/24: Discharge today to home. Pt ensures that she will have help with family at home for safety. (2) Acute UTI: Code(s): N39.0 - Urinary tract infection, site not specified Status: Acute Assessment and Plan: -UA shows pyuria Continue ceftriaxone 1 g IV daily urine culture pending 07/20/24: Urine culture reported out today growth of E coli with benites sensitivity. Patient has received 4 doses ceftriaxone 1 g. IV antibiotics are discontinued today patient started on Levaquin 750 mg for 4 days. 07/21/24: Continue po Levaquin. Last dose on 07/23/24. 07/22/24: Urine culture grew out E.coli, sensitive to Levaquin. She has been taking PO. Discharge with prescription for Levaquin 750 mg daily for one additional dose tomorrow. (3) Physical deconditioning: Code(s): R53.81 - Other malaise Status: Acute Assessment and Plan: 07/20/24: See 1. (4) Hyponatremia: Code(s): E87.1 - Hypo-osmolality and hyponatremia Status: Resolved Assessment and Plan: Hyponatremia, likely secondary to dehydration -continue IV fluid NS 75 ML/Hr -monitor BMP daily 07/20/24: Sodium level today is 136. This is resolved. Patient is tolerating p.o. intake well without any difficulty. Therefore IV fluids were stopped at this time. (5) Dementia: Code(s): F03.90 - Unspecified dementia, unspecified severity, without behavioral disturbance, psychotic disturbance, mood disturbance, and anxiety Status: Chronic Assessment and Plan: Without behavioral disturbances -continue to memantine 10mg b.i.d. p.o. 07/20/24: Continue Namenda. 07/21/24: Pt alert and oriented x4 without any acute deficits of Neuro status. Continue Namenda. 07/22/24: Continue home meds upon discharge (6) Multiple lung nodules: Code(s): R91.8 - Other nonspecific abnormal finding of lung field Status: Acute Assessment and Plan: -metastatic lesions in the long -mediastinal, retroperitoneal and left iliac lymphadenopathy -consulted seen/oncologist eval and treat appreciate recommendation and plan 07/20/24: CT chest abdomen and pelvis was ordered and performed with results showing multiple areas of suspected metastasis in the lungs, liver, spleen, retroperitoneal region, and pelvis. Per oncology note the desired for biopsy is present and site to be determined based upon the results of the CT of the chest abdomen and pelvis. We are reaching out to Oncology today to discuss desire for biopsy Prior to discharge. 07/21/24: Plan for biopsy of Liver today as there were also multiple masses there. NPO for biopsy Pre meds with ativan. 07/22/24: Biopsy performed yesterday of the liver. Dr. Fischer has consulted for Oncology and will follow as outpt. Concern for multiple organ involvement metastatic disease. 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
[2024-07-22 08:25] LABS: Glucose Point of Care 171 mg/dl (65-105)
[2024-07-22] MEDS: levoFLOXacin 750 MG TABLET PO (09:08)
[2024-07-22] MEDS: GABAPENTIN 100 MG CAPSULE PO (09:08)
== END 2024-07-22 11:05 | disposition home health service (06) | DRG 436 ==
LOC: ANHED 23:50 → ANH2MED 07-17 00:22
PROVIDERS: Hospitalist; Internal Medicine Hematology & Oncology; Nurse Practitioner; Physician Assistant; Admitting Provider Internal Medicine; Emergency Provider Emergency Medicine; PCP Internal Medicine; Visit Provider Nurse Practitioner Adult Health
DX: C78.7 Secondary malignant neoplasm of liver and intrahepatic bile duct (principal); C78.01 Secondary malignant neoplasm of right lung; N39.0 Urinary tract infection, site not specified; E87.1 Hypo-osmolality and hyponatremia; C78.02 Secondary malignant neoplasm of left lung; C80.1 Malignant (primary) neoplasm, unspecified; I10 Essential (primary) hypertension; I95.1 Orthostatic hypotension; B96.20 Unspecified Escherichia coli [E. coli] as the cause of diseases classified elsewhere; E86.0 Dehydration; E11.9 Type 2 diabetes mellitus without complications; E78.5 Hyperlipidemia, unspecified; D50.9 Iron deficiency anemia, unspecified; S00.83XA Contusion of other part of head, initial encounter; G35 Multiple sclerosis; R29.6 Repeated falls; F03.90 Unspecified dementia, unspecified severity, without behavioral disturbance, psychotic disturbance, mood disturbance, and anxiety; W19.XXXA Unspecified fall, initial encounter; Z87.891 Personal history of nicotine dependence
CPT/HCPCS: 36415; 47000; 70450; 70486; 71046; 71260; 72125; 72128; 72131; 74177; 76942; 80053; 81001; 82728; 82948; 83036; 85025; 85055; 85610; 85730; 87077; 87086; 87088; 87186; 88307; 88342; 93005; 96361; 96365; 97110; 97161; 97165; 97530; 97535; 99285; A9270; G0378; J0696; J1815; J2060; J7030; Q9967

== ENCOUNTER 2024-07-30 11:39 | Outpatient (CLI) | payer MEDICARE, SELFPAY ==
[2024-07-30 12:13] LABS: Kit Draw Collected
== END 2024-07-30 11:40 | disposition home or self-care (01) ==
LOC: ANHLAB 11:42
PROVIDERS: PCP Internal Medicine; Visit Provider Internal Medicine Hematology & Oncology
DX: C80.1 Malignant (primary) neoplasm, unspecified (principal)
CPT/HCPCS: 36415

== ENCOUNTER 2024-08-18 10:22 | Outpatient (CLI) | payer MEDICARE, SELFPAY ==
--- NOTE | ~2024-08-18 | PE_ITS ---
EXAMINATION: PET skull to mid thigh DATE: 08/18/2024 13:38 INDICATION: Metastatic adenocarcinoma of unknown primary. TECHNIQUE: Blood glucose level was 116 mg/dL. 10.999 mCi of 18-fluorodeoxyglucose (18-FDG) was admini stered i.v. Low dose computed tomography (CT) images were acquired from the base of the brain to the proximal thighs for attenuation correction and anatomic localization. Automated exposure control was employed. Dose-length product (DLP) was 1140 mGy-cm. Positron emission tomography (PET) images were a cquired in the same distribution. COMPARISON: CT chest, abdomen, and pelvis 07/17/2024 FINDINGS: Head/neck: There are likely changes of ocular lens replacement surgeries. There is a 2.2 x 1.7 cm lef t supraclavicular node with increased activity. Chest: There is mild emphysema. There are greater than 20 scattered nodules in the lungs measuring up to 2.0 cm in left upper lobe with increased activity. No pleural effusion. There is left atrial enla rgement of the heart. There are coronary artery calcifications. No pericardial effusion. There is med iastinal lymphadenopathy with increased activity. Abdomen/pelvis/proximal thighs: There are multiple ill-defined masses in the liver with increased act ivity. There is a gallstone in the gallbladder, which is normal in size. There is mild splenomegaly. There are cysts in the spleen measuring up to 2.2 cm. The pancreas, adrenal glands, and kidneys are n ormal. There is a moderate volume of ascites. There are no dilated loops of bowel. There is periporta l, aortocaval, and left para-aortic lymphadenopathy with increased activity. There is a portacaval sh unt in left anterior abdomen. IMPRESSION: 1. Lung nodules, liver masses, and chest and abdominal lymphadenopathy with increased activity, consi stent with metastatic disease. 2. Portal venous hypertension. 3. Moderate volume of ascites. Reviewed, dictated and finalized at location A. IMPRESSION: 1. Lung nodules, liver masses, and chest and abdominal lymphadenopathy with inc reased activity, consistent with metastatic disease. 2. Portal venous hypertension. 3. Moderate volume of ascites.
[2024-08-18 11:44] LABS: Glucose Point of Care 116 mg/dl (65-105)
== END 2024-08-18 10:23 | disposition home or self-care (01) ==
LOC: ANHIMG 10:26
PROVIDERS: PCP Internal Medicine; Visit Provider Internal Medicine Hematology & Oncology
DX: C22.0 Liver cell carcinoma (principal); C80.1 Malignant (primary) neoplasm, unspecified; R18.8 Other ascites; R91.8 Other nonspecific abnormal finding of lung field
CPT/HCPCS: 78815; A9552

== ENCOUNTER 2024-09-06 23:20 | Emergency (ER) | payer MEDICARE, SELFPAY ==
--- NOTE | ~2024-09-06 | CT_ITS ---
Noncontrast CT scan of the cervical spine Technique: Multiple contiguous axial [address] images of the cervical spine were obtained and rec onstructed in 2D sagittal and coronal planes on the acquisition scanner. Dose reduction technique was used on this scan by utilizing automated exposure control, adjustment of the mA and/or kV according to patient size. The dose-length product (DLP) was 298.44 mGy-cm. Clinical History: Pain Findings: No fractures or dislocations. There is advanced degenerative disc narrowing at C6-C7 and C 7-T1. There is extensive facet arthropathy in the cervical spine. There is right neural foraminal fern rowing at C5-C6. There is bilateral neural foraminal narrowing at C6-C7. No prevertebral soft tissue swelling. Impression: No fracture or subluxation of the cervical spine. Reviewed, dictated and finalized at [facility]. 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
--- NOTE | ~2024-09-06 | CT_ITS ---
Noncontrast CT scan of the lumbar spine CLINICAL HISTORY: Back pain, status post fall TECHNIQUE: Axial noncontrast imaging of the lumbar spine was performed. Sagittal and coronal reformat sigrid images were constructed. Dose reduction technique was used on this scan by utilizing automated ex posure control and iterative reconstruction technique. The dose-length product (DLP) was 1111.64 mGy- cm. FINDINGS: There is mild levoscoliosis. No fracture or subluxation evident otherwise. At L1-L2, there is minimal disc bulge and mild facet hypertrophy. No spinal canal stenosis or neural foraminal narrowing evident. At L2-L3, there is mild degenerative disc narrowing. There is mild disc bulge and moderate to advance d facet arthropathy. Probable minimal central canal stenosis. There is moderate right neural foramina l narrowing. Left neural foramen preserved. At L3-L4, there is severe degenerative disc narrowing. There is mild disc bulge with moderate facet a rthropathy. There is probable moderate central canal stenosis. There is moderate to advanced right ne ural foraminal narrowing. Left neural foramen preserved. At L4-L5, there is advanced degenerative disc 9. Disc bulge and advanced facet arthropathy result in severe spinal canal stenosis/thecal sac compression. There is moderate to advanced bilateral neural f oraminal narrowing, right worse than left. At L5-S1, there is disc bulge and mild facet arthropathy. No stella central canal stenosis. There is s evere left neural foraminal narrowing, and mild right neural foraminal narrowing. Paravertebral soft tissues are unremarkable. Small to moderate abdominopelvic ascites partially image d. Probable large calcified gallstone present. Impression: No acute fracture or subluxation. Levoscoliosis with moderate to advanced degenerative spondylitic changes. Cholelithiasis. Small to moderate abdominopelvic ascites. Reviewed, dictated and finalized at location . 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 Levoscoliosis with moderate to advanced degenerative spondylitic changes. Cholelithiasis. Small to moderate abdominopelvic ascites.
--- NOTE | ~2024-09-06 | CT_ITS ---
CT head without contrast Indication: Head injury COMPARISON: 07/16/2024 Technique: Serial scans were obtained through the brain without the administration of contrast. Dose reduction technique was used on this scan by utilizing automated exposure control and iterative recon struction technique. The dose-length product (DLP) was 756.67 mGy-cm. Findings: There is no evidence of intracranial hemorrhage, mass lesion, or acute infarct. The ventri cles and subarachnoid spaces are dilated, consistent with moderate atrophy. Low attenuation regions are seen within the periventricular white matter bilaterally, likely representing changes from chroni c microvascular ischemic disease. There is no evidence of edema, mass effect or midline shift. The visualized paranasal sinuses and mastoid air cells are clear. Impression: No intracranial hemorrhage, mass, or acute infarct. Atrophy and chronic white matter changes, as above. Reviewed, dictated and finalized at [facility]. 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 Atrophy and chronic white matter changes, as above.
--- NOTE | ~2024-09-06 | XR_ITS ---
Portable chest x-ray Comparison: 07/16/2024 Clinical History: Weakness Findings: There is central congestive change and probable minimal bibasilar pulmonary edema. Cardio mediastinal silhouette is prominent, possibly due to AP technique. Bones and soft tissues are unremar kable. Impression: Central congestive change and probable minimal bibasilar pulmonary edema. Reviewed, dictated and finalized at [facility]. 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
[2024-09-06 23:24] VITALS: BP 126/56; PULSE 83; RESP 18; TEMP 36.3; O2SAT 100
--- NOTE | 2024-09-06 23:44 | PC.NURSE ---
Pt was placed in gown. Pt bloody clothes and linen were changed and pt was placed in a gown. This Rn cleaned pt laceration and dried blood on hands and head at this time.
--- NOTE | 2024-09-07 00:13 | ECG_ITS ---
Test Date: 2024-09-07 01:00:29 Measurements Intervals [place] Rate: 84 P: -43 DC: 163 QRS: -3 QRSD: 69 T: -14 QT: 383 QTc: 454 Interpretive Statements SINUS RHYTHM LOW QRS VOLTAGE IN PRECORDIAL LEADS ANTEROSEPTAL INFARCT, AGE INDETERMINATE BORDERLINE ST-T WAVE ABNORMALITY- ANTEROLAT/INF LEADS BASELINE ARTIFACT- I, II, III, AVR, AVL, AVF, V4-V6 ABNORMAL ECG Compared to ECG 07/16/2024 23:10:06 NO SIGNIFICANT CHANGE Electronically Signed On 09-07-2024 06:01:35 GAUGE CONTROLLER by Dariel Wren D.O.
[2024-09-07] MEDS: SODIUM CHLORIDE 0.9% IV 1,000 ML 999 ML IV CONT (01:01)
[2024-09-07] MEDS: TETANUS,DIPHTHERIA,AC PERTUSSIS ADULT (0.5 ML) BOOSTRIX IM (01:01)
[2024-09-07] MEDS: ACETAMINOPHEN 325 MG TABLET 650 MG PO (01:01)
[2024-09-07 01:02] VITALS: BP 142/64; PULSE 80; RESP 18; O2SAT 100
[2024-09-07 01:20] LABS: Alanine Aminotransferase 15 U/L (6-35); Albumin Level 3.7 g/dL (3.5-5.1); Alkaline Phosphatase 124 U/L (38-126); Anion Gap 12 mmol/L (4-12); Aspartate Amino Transferase 39 U/L (14-36); Bilirubin,Total 1.5 mg/dL (0.2-1.3); Blood Urea Nitrogen 15 mg/dL (7-17); Carbon Dioxide 26 mmol/L (22-30); Chloride 99 mmol/L (98-107); Estimated CRCL calculation 53 ml/min; Estimated Glomerular Filt Rate > 60; Glucose 108 mg/dL (65-110); Potassium 4.6 mmol/L (3.4-5.0); Sodium 137 mmol/L (137-145)
--- NOTE | 2024-09-07 01:40 | PC.NURSE ---
Rn attempted to get urine from pt. Pt states she is unable to go yet and wants totry when she receives all her bag of fluids. This Rn mentioned a catheter alternative if we are unable to get sample.
--- NOTE | 2024-09-07 01:55 | ED_ITS ---
HPI - Fall General Chief Complaint: Fall <Cher Alford PA-C - Last Filed: 09/07/24 02:23> Stated Complaint: HEAD LAC S/P FALL <Cher Alford PA-C - Last Filed: 09/07/24 02:23> Time Seen by Provider: 09/07/24 00:04 <Cher Alford PA-C - Last Filed: 09/07/24 02:23> History of Present Illness HPI Narrative: 79-year-old female with history of MS, metastatic lung cancer, chronic ITP, type 2 diabetes, hypertension, GERD, hypothyroidism presents to the emergency department via EMS from home for a ground level fall. Patient states she woke up to go to the bathroom and she felt weak. She sat down on the toilet when she stood up she felt weak and fell to the ground. States she did not have a syncopal episode and did not lose consciousness but did hit her head. She presents with a laceration to her right parietal lobe. she is reporting pain to her head and low back. Denies other injuries acquired. Denies saddle anesthesia, bowel or bladder incontinence. Last Tdap unknown. She denies vision changes, focal numbness or weakness, chest pain or shortness of breath, abdominal pain, dysuria or hematuria, Fever. Patient states she feels g enerally weak. She states this does not feel like an MS flare. she ambulates with a walker. <Cher Alford PA-C - Last Filed: 09/07/24 02:23> Related Data Home Medications: Home Medications Medication Instructions Recorded Confirmed donepezil 10 mg tablet 10 mg PO QHS 08/13/22 09/03/24 citalopram 40 mg tablet 40 mg PO HS 07/17/24 09/03/24 gabapentin 100 mg capsule 100 mg PO DAILY 07/17/24 09/03/24 gabapentin 600 mg tablet 300 mg PO HS 07/17/24 09/03/24 memantine 10 mg tablet 10 mg PO HS 07/17/24 09/03/24 metformin 500 mg tablet,extended 500 mg PO HS 07/17/24 09/03/24 release 24 hr trazodone 100 mg tablet 100 mg PO HS 07/17/24 09/03/24 loperamide 2 mg capsule 2 mg PO PRN PRN Diarrhea 07/18/24 09/03/24 <Cher Alford PA-C - Last Filed: 09/07/24 02:23> Allergies/Adverse Reactions: Allergies Allergy/AdvReac Type Severity Reaction Status Date / Time tomato Allergy Severe Mouth sores Verified 09/02/24 14:10 [place] And Derivatives Allergy Intermediate Mouth sores Verified 09/02/24 14:10 strawberry Allergy Mild Unknown Verified 09/02/24 14:10 Penicillins Allergy Unknown Unknown Verified 09/02/24 14:10 Sulfa (Sulfonamide Allergy Unknown Unknown Verified 09/02/24 14:10 Antibiotics) <Cher Alford PA-C - Last Filed: 09/07/24 02:23> Review of Systems Review of Systems: All systems reviewed & are unremarkable except as noted in HPI and below <Cher Alford PA-C - Last Filed: 09/07/24 02:23> [facility] Past Medical History Medical History: Medical History Multiple sclerosis Type 2 diabetes mellitus without complications <Cher Alford PA-C - Last Filed: 09/07/24 02:23> Surgical History Surgical History: Surgical History H/O cataract removal with insertion of prosthetic lens <Cher Alford PA-C - Last Filed: 09/07/24 02:23> Family History Family History: Family History Sibling Hypertension Family history of malignant neoplasm of cervix Father Patient's father is <Cher Alford PA-C - Last Filed: 09/07/24 02:23> Social History Social History: Social History Smoking packs per day: 1 Smoking cigarettes per day: 20.0 Years smoked: 30 Smoking pack-years: 30.00 Smoking status: Former smoker Tobacco type: cigarettes Second hand tobacco smoke exposure: Yes () Smoking end date: 11/04/92 Alcohol intake: current Drinks per week: 2 Substance use: never Do You Feel Safe in your Home?: Yes Lack of Transportation: No Lack of Food: Never True Current Housing: I Have Housing Concerned About Future Housing: No Difficulty Paying Gas/Electric Bills: No Difficulty Paying for Meds: No Currently Unemployed: No Education: High School Diploma/GED Difficulty w/ Childcare or Family Care: No Gender identity (if verbalized by the patient): Female Spiritual care concerns: No <Cher Alford PA-C - Last Filed: 09/07/24 02:23> Exam Narrative: GENERAL: Well-appearing, well-nourished, and in no acute distress. HEAD: Normocephalic EYES: PERRLA and EOMI. ENT: Nares clear, no rhinorrhea or epistaxis. Mucous membranes dry NECK: no midline cervical spinous tenderness, step-offs or deformities BACK: No thoracic spinous tenderness, step-offs or deformities. Tenderness to the lumbar spine with no crepitus, step-offs or deformities CHEST: Clear to auscultation. No respiratory distress. HEART: Regular rate and rhythm. No murmur heard. Normal peripheral pulses. ABDOMEN: Soft, nontender, nondistended, normal active bowel sounds. EXTREMITIES: Normal range of motion. No edema. no tenderness to upper lower extremities SKIN: 3 cm laceration to the right posterior lateral scalp, largely superficial, bleeding controlled. No deep structures or foreign bodies visualized NEURO: No focal deficits. Alert and oriented x3. Cranial nerves 2-12 intact. Strength 5/5 BUE and BLE. Sensation intact throughout. No saddle anesthesia <Cher Alford PA-C - Last Filed: 09/07/24 02:23> Course Vital Signs Vital signs: Vital Signs Temperature 36.3 C L 09/06/24 23:24 Pulse Rate 83 09/06/24 23:24 Respiratory Rate 18 09/06/24 23:24 Blood Pressure 126/56 L 09/06/24 23:24 Pulse Oximetry 100 09/06/24 23:24 Oxygen Delivery Room Air 09/06/24 23:24 Temperature 36.3 C L 09/06/24 23:24 Pulse Rate 80 09/07/24 02:35 Respiratory Rate 18 09/07/24 02:35 Blood Pressure 129/86 09/07/24 02:35 Pulse Oximetry 100 09/07/24 02:35 Oxygen Delivery Room Air 09/06/24 23:24 <Cher Alford PA-C - Last Filed: 09/07/24 02:23> Vital Signs Temperature 36.3 C L 09/06/24 23:24 Pulse Rate 83 09/06/24 23:24 Respiratory Rate 18 09/06/24 23:24 Blood Pressure 126/56 L 09/06/24 23:24 Pulse Oximetry 100 09/06/24 23:24 Oxygen Delivery Room Air 09/06/24 23:24 Temperature 36.3 C L 09/06/24 23:24 Pulse Rate 80 09/07/24 02:35 Respiratory Rate 18 09/07/24 02:35 Blood Pressure 129/86 09/07/24 02:35 Pulse Oximetry 100 09/07/24 02:35 Oxygen Delivery Room Air 09/06/24 23:24 <Reji Jensen MD - Last Filed: 09/07/24 03:42> Procedures Laceration Laceration 1: Date: 09/07/24 <Cher Alford PA-C - Last Filed: 09/07/24 02:23> Time: 02:02 <CECI Olivares Last Filed: 09/07/24 02:23> Site: scalp <CECI Olivares Last Filed: 09/07/24 02:23> Side (If applicable): right <CECI Olivares Last Filed: 09/07/24 02:23> Size (cm): 3 <CECI Olivares Last Filed: 09/07/24 02:23> Description: linear <CECI Olivares Last Filed: 09/07/24 02:23> Depth: simple, single layer <CECI Olivares Last Filed: 09/07/24 02:23> Pre-repair: wound explored and irrigated <CECI Olivares Last Filed: 09/07/24 02:23> ====== Skin Level ======: Skin layer closed with: ravin <Cher Alford PA-C - Last Filed: 09/07/24 02:23> Number of sutures: 2 <Cher Alford PA-C - Last Filed: 09/07/24 02:23> Technique: simple, interrupted <Cher Alford PA-C - Last Filed: 09/07/24 02:23> ====== Subcutaneous Layer ======: ====== Muscle Layer ======: ====== Tendon Layer ======: MDM - Fall MDM Narrative Medical decision making narrative: 79-year-old female presents to the emergency department for a fall due to generalized weakness. She did hit her head but did not lose consciousness. Vitals are stable. Exam significant for the above. No focal deficits. Mucous membranes are very dry, fluid started. Laceration cleaned with normal saline and closed with [address] brain shows looking or infarcts in the bilateral basal ganglial a, moderate ischemic micro angiopathy, age-appropriate cerebral volume loss, no acute findings. CT cervical spine shows no acute osseous pathology. EKG shows sinus rhythm, normal [place] interval, normal QRS duration, normal QTC, Q-waves in the anterior leads, no ST elevations or depressions. Pending CT lumbar spine and urinalysis time of sign-out to Dr. Jensen. <Cher Alford PA-C - Last Filed: 09/07/24 02:23> 79-year-old female presents to the emergency department for a fall due to generalized weakness. She did hit her head but did not lose consciousness. Vitals are stable. Exam significant for the above. No focal deficits. Mucous membranes are very dry, fluid started. Laceration cleaned with normal saline and closed with [address] brain shows looking or infarcts in the bilateral basal ganglial a, moderate ischemic micro angiopathy, age-appropriate cerebral volume loss, no acute findings. CT cervical spine shows no acute osseous pathology. EKG shows sinus rhythm, normal [place] interval, normal QRS duration, normal QTC, Q-waves in the anterior leads, no ST elevations or depressions. Pending CT lumbar spine and urinalysis time of sign-out to Dr. Jensen. urinalysis showed no evidence UTI, CT lumbar spine showed no evidence of acute fracture <Reji Jensen MD - Last Filed: 09/07/24 03:42> Lab Data Result diagrams: 09/07/24 01:36 09/07/24 01:03 <Cher Alford PA-C - Last Filed: 09/07/24 02:23> Labs: Lab Results 09/07/24 09/07/24 09/07/24 Range/Units 01:03 01:36 02:32 WBC 7.4 (4.5-10.0) K/mm3 RBC 3.37 L (4.2-5.4) M/mm3 Hgb 10.1 L (12.0-15.0) g/dL Hct 32.1 L (37.0-47.0) % MCV 95.3 (80-100) fl MCH 30.0 (26-34) pg MCHC 31.5 L (32-36) g/dl RDW 15.9 H (11.5-14.5) % Plt Count 110 L (150-375) k/mm3 MPV 9.6 (7.4-10.4) fl Immature Gran % (Auto) 0.5 (0-0.5) % Neut % (Auto) 76.9 H (45.5-73.1) % Lymph % (Auto) 8.9 L (18.3-44.2) % [place] % (Auto) 11.1 H (2.6-8.5) % Eos % (Auto) 1.9 (0-4.4) % Baso % (Auto) 0.7 (0.2-1.2) % Lymph # (Auto) 0.66 L (0.9-3.2) K/mm3 [place] # (Auto) 0.8 H (0.1-0.6) K/mm3 Eos # (Auto) 0.1 (0-0.3) K/mm3 Baso # (Auto) 0.1 (0.0-0.1) K/mm3 Abs Immat Gran (auto) 0.04 H (0.00-0.031) K/mm3 Absolute Neuts (auto) 5.7 (1.3-6.7) K/mm3 Absolute Nucleated RBC 0.000 (0.0-0.012) K/mm3 Nucleated RBC % 0.0 (0.0-0.2) % % Immature Plt Fraction 1.5 (0.9-11.2) % Sodium 137 (137-145) mmol/L Potassium 4.6 (3.4-5.0) mmol/L Chloride 99 (98-107) mmol/L Carbon Dioxide 26 (22-30) mmol/L Anion Gap 12 (4-12) mmol/L BUN 15 D (7-17) mg/dL Creatinine 0.70 (0.7-1.0) mg/dL Estim Creat Clear Calc 53 ml/min Estimated GFR > 60 (59 - ) Glucose 108 (65-110) mg/dL Calcium 11.0 H (8.4-10.2) mg/dL Total Bilirubin 1.5 H (0.2-1.3) mg/dL AST 39 H (14-36) U/L ALT 15 (6-35) U/L Alkaline Phosphatase 124 (38-126) U/L Total Protein 9.0 H (6.3-8.2) g/dL Albumin 3.7 (3.5-5.1) g/dL Urine Color Dark yellow (Yellow) Urine Appearance Cloudy H (Clear) Urine pH 5.5 (5.0-9.0) Ur Specific [place] 1.021 (1.001-1.035) Urine Protein Trace (Negative) mg/dL Urine Glucose (UA) Negative (Negative) mg/dL Urine Ketones 1+ H (Negative) mg/dL Ur Blood (Man) Negative (Negative) Urine Nitrate Negative (Negative) Urine Bilirubin Negative (Negative) Urine Urobilinogen 1.0 (<2.0) mg/dL Add Ur Microanalysis Reviewed Leukocyte Esterase Rfl Negative (Negative) JOANNA/UL Urine RBC 3-5 H (0-2) /hpf Urine WBC 0-5 (0-3) /hpf Ur Squamous Epith Cells Moderate (Few) /hpf Urine Bacteria None seen /hpf Urine Casts 11-20 Urine Mucus Present /lpf <Cher Alford PA-C - Last Filed: 09/07/24 02:23> Lab Results 09/07/24 09/07/2424 Range/Units 01:03 01:36 02:32 WBC 7.4 (4.5-10.0) K/mm3 RBC 3.37 L (4.2-5.4) M/mm3 Hgb 10.1 L (12.0-15.0) g/dL Hct 32.1 L (37.0-47.0) % MCV 95.3 (80-100) fl MCH 30.0 (26-34) pg MCHC 31.5 L (32-36) g/dl RDW 15.9 H (11.5-14.5) % Plt Count 110 L (150-375) k/mm3 MPV 9.6 (7.4-10.4) fl Immature Gran % (Auto) 0.5 (0-0.5) % Neut % (Auto) 76.9 H (45.5-73.1) % Lymph % (Auto) 8.9 L (18.3-44.2) % [place] % (Auto) 11.1 H (2.6-8.5) % Eos % (Auto) 1.9 (0-4.4) % Baso % (Auto) 0.7 (0.2-1.2) % Lymph # (Auto) 0.66 L (0.9-3.2) K/mm3 [place] # (Auto) 0.8 H (0.1-0.6) K/mm3 Eos # (Auto) 0.1 (0-0.3) K/mm3 Baso # (Auto) 0.1 (0.0-0.1) K/mm3 Abs Immat Gran (auto) 0.04 H (0.00-0.031) K/mm3 Absolute Neuts (auto) 5.7 (1.3-6.7) K/mm3 Absolute Nucleated RBC 0.000 (0.0-0.012) K/mm3 Nucleated RBC % 0.0 (0.0-0.2) % % Immature Plt Fraction 1.5 (0.9-11.2) % Sodium 137 (137-145) mmol/L Potassium 4.6 (3.4-5.0) mmol/L Chloride 99 (98-107) mmol/L Carbon Dioxide 26 (22-30) mmol/L Anion Gap 12 (4-12) mmol/L BUN 15 D (7-17) mg/dL Creatinine 0.70 (0.7-1.0) mg/dL Estim Creat Clear Calc 53 ml/min Estimated GFR > 60 (59 - ) Glucose 108 (65-110) mg/dL Calcium 11.0 H (8.4-10.2) mg/dL Total Bilirubin 1.5 H (0.2-1.3) mg/dL AST 39 H (14-36) U/L ALT 15 (6-35) U/L Alkaline Phosphatase 124 (38-126) U/L Total Protein 9.0 H (6.3-8.2) g/dL Albumin 3.7 (3.5-5.1) g/dL Urine Color Dark yellow (Yellow) Urine Appearance Cloudy H (Clear) Urine pH 5.5 (5.0-9.0) Ur Specific [place] 1.021 (1.001-1.035) Urine Protein Trace (Negative) mg/dL Urine Glucose (UA) Negative (Negative) mg/dL Urine Ketones 1+ H (Negative) mg/dL Ur Blood (Man) Negative (Negative) Urine Nitrate Negative (Negative) Urine Bilirubin Negative (Negative) Urine Urobilinogen 1.0 (<2.0) mg/dL Add Ur Microanalysis Reviewed Leukocyte Esterase Rfl Negative (Negative) JOANNA/UL Urine RBC 3-5 H (0-2) /hpf Urine WBC 0-5 (0-3) /hpf Ur Squamous Epith Cells Moderate (Few) /hpf Urine Bacteria None seen /hpf Urine Casts 11-20 Urine Mucus Present /lpf <Reji Jensen MD - Last Filed: 09/07/24 03:42> Discharge Plan Discharge Clinical Impression: Fall, Laceration of scalp <Cher Alford PA-C - Last Filed: 09/07/24 02:23> Patient Disposition: Home, Self-Care <Cher Alford PA-C - Last Filed: 09/07/24 02:23> Condition: Stable <Cher Alford PA-C - Last Filed: 09/07/24 02:23> Instructions: Antibiotic Form, Laceration (ED), Head Injury (ED), Fall Prevention (ED) <Cher Alford PA-C - Last Filed: 09/07/24 02:23> Additional Instructions: you have 2 ravin these should be removed in 7-10 days <Cher Alford PA-C - Last Filed: 09/07/24 02:23> Prescriptions: No Action mirtazapine 7.5 mg tablet 7.5 mg PO QHS Qty: 30 2RF citalopram 40 mg tablet 40 mg PO HS trazodone 100 mg tablet 100 mg PO HS memantine 10 mg tablet 10 mg PO HS gabapentin 600 mg tablet 300 mg PO HS gabapentin 100 mg capsule 100 mg PO DAILY Rx Instructions: take with 300mg dose at HS metformin 500 mg tablet extended release 24 hr 500 mg PO HS loperamide 2 mg Capsule 2 mg PO PRN PRN (Reason: Diarrhea) levofloxacin 750 mg tablet 750 mg PO DAILY Qty: 1 0RF Rx Instructions: Take one tablet on 07/23/24 to complete dosing. donepezil 10 mg tablet 10 mg PO QHS Patient Comments: Pt started taking this in June Rx Instructions: 1 QHS lisinopril 20 mg tablet 20 mg PO DAILY Qty: 90 1RF Rx Instructions: pt takes at HS potassium chloride 20 mEq tablet extended release 20 meq PO HS Qty: 90 1RF sodium,potassium,mag sulfates [Suprep Bowel Prep Kit] 17.5-3.13-1.6 gram recon soln See Rx Instructions PO .COMPLEX Qty: 354 0RF Rx Instructions: Take as directed per the written instructions that were mailed to you. <Cher Alford PA-C - Last Filed: 09/07/24 02:23> Follow-up/Referrals: Shayne Tolentino DO [Primary Care Provider] - <Cher Alford PA-C - Last Filed: 09/07/24 02:23> Time of Disposition: 03:38 <Cher Alford PA-C - Last Filed: 09/07/24 02:23> 03:38 <Reji Jensen MD - Last Filed: 09/07/24 03:42> Sign Out Sign Out Data: Patient Sign Out occurred on 09/07/24 at 02:30. Patient's care was discussed, and care was transferred from Cher Alford PA-C to Reji Jensen MD. <Cher Alford PA-C - Last Filed: 09/07/24 02:23>
[2024-09-07 01:56] LABS: Basophils Absolute Auto 0.1 K/mm3 (0.0-0.1); Basophils Percent Auto 0.7 % (0.2-1.2); Eosinophils Absolute Auto 0.1 K/mm3 (0-0.3); Eosinophils Percent Auto 1.9 % (0-4.4); Hematocrit 32.1 % (37.0-47.0); Hemoglobin 10.1 g/dL (12.0-15.0); Immature Granulocyte Absolute 0.04 K/mm3 (0.00-0.031); Immature Granulocyte Percent A 0.5 % (0-0.5); Immature Platelet Fraction Pct 1.5 % (0.9-11.2); Lymphocytes Absolute Auto 0.66 K/mm3 (0.9-3.2); Lymphocytes Percent Auto 8.9 % (18.3-44.2); Mean Corpuscular HGB Conc 31.5 g/dl (32-36); Mean Corpuscular Volume 95.3 fl (80-100); Mean Platelet Volume 9.6 fl (7.4-10.4); Monocytes Absolute Auto 0.8 K/mm3 (0.1-0.6); Monocytes Percent Auto 11.1 % (2.6-8.5); Neutrophils Absolute Auto 5.7 K/mm3 (1.3-6.7); Neutrophils Percent Auto 76.9 % (45.5-73.1); Platelet Count Result 110 k/mm3 (150-375); Red Blood Count 3.37 M/mm3 (4.2-5.4); Red Cell Distribution Width 15.9 % (11.5-14.5); White Blood Count 7.4 K/mm3 (4.5-10.0)
[2024-09-07 02:35] VITALS: BP 129/86; PULSE 80; RESP 18; O2SAT 100
[2024-09-07 03:14] LABS: Add Urine Microscopic? YES; Appearance Urine Cloudy (Clear); Bacteria Urine None Seen /hpf; Bilirubin Urine Negative (Negative); Blood Urine Negative (Negative); Color Urine Dark Yellow (Yellow); Glucose Urine UA Negative (Negative); Ketones Urine 1+ mg/dL (Negative); Leukocyte Esterase Ur Negative LEU/UL (Negative); Mucus Urine Present /lpf; Need Manual Microscopic Reviewed; Nitrate Urine Negative (Negative); Protein Urine Trace mg/dL (Negative); Specific Grav Ur 1.021 (1.001-1.035); Squamous Epithelial Cell Urine Moderate /hpf (Few); WBC Urine 0-5 /hpf (0-3); pH Urine 5.5 (5.0-9.0)
== END 2024-09-07 04:13 | disposition home or self-care (01) ==
PROVIDERS: Physician Assistant; Emergency Provider Emergency Medicine; PCP Internal Medicine
DX: S01.01XA Laceration without foreign body of scalp, initial encounter (principal); Z23 Encounter for immunization; C34.90 Malignant neoplasm of unspecified part of unspecified bronchus or lung; C79.9 Secondary malignant neoplasm of unspecified site; G35 Multiple sclerosis; I10 Essential (primary) hypertension; E11.9 Type 2 diabetes mellitus without complications; E03.9 Hypothyroidism, unspecified; D69.3 Immune thrombocytopenic purpura; K21.9 Gastro-esophageal reflux disease without esophagitis; Z87.891 Personal history of nicotine dependence; Z79.84 Long term (current) use of oral hypoglycemic drugs; Z79.899 Other long term (current) drug therapy; W18.39XA Other fall on same level, initial encounter; R94.31 Abnormal electrocardiogram [ECG] [EKG]; K80.20 Calculus of gallbladder without cholecystitis without obstruction
CPT/HCPCS: 12001; 36415; 70450; 71045; 72125; 72131; 80053; 81001; 85025; 85055; 90471; 90715; 93005; 96360; 99284; A9270; J7030